=== PATIENT | female | born 1965 | race Caucasian/White ===

== ENCOUNTER 2020-06-28 10:49 | Outpatient (REF) | payer OTHER, SELFPAY ==
[2020-06-28 11:14] LABS: COVID-19 Test Negative (Negative); IDNOW Serial# 55D5AD1C
== END 2020-06-28 10:50 | disposition home or self-care (01) ==
LOC: HO.EMPCOV 10:49
PROVIDERS: Visit Provider Internal Medicine
DX: Z20.828 Contact with and (suspected) exposure to other viral communicable diseases (principal)
CPT/HCPCS: 87635; C9803

== ENCOUNTER 2020-07-02 08:30 | Outpatient (REF) | payer OTHER, SELFPAY ==
[2020-07-02 10:09] LABS: COVID-19 Test Positive (Negative)
== END 2020-07-02 08:31 | disposition home or self-care (01) ==
LOC: HO.EMPCOV 08:30
PROVIDERS: Visit Provider Internal Medicine
DX: Z20.828 Contact with and (suspected) exposure to other viral communicable diseases (principal)
CPT/HCPCS: 87635; C9803

== ENCOUNTER 2020-07-30 07:58 | Outpatient (REF) | payer OTHER, SELFPAY ==
[2020-07-30 08:16] LABS: COVID-19 Test Positive (Negative)
== END 2020-07-30 07:59 | disposition home or self-care (01) ==
LOC: HO.EMPCOV 07:58
PROVIDERS: Visit Provider Internal Medicine
DX: Z20.828 Contact with and (suspected) exposure to other viral communicable diseases (principal)
CPT/HCPCS: 87635; C9803

== ENCOUNTER 2021-01-01 07:06 | Outpatient (REF) | payer OTHER, SELFPAY ==
[2021-01-01 08:21] LABS: Glucose Urine UA NEG (NEG); Leukocyte Esterase Urine NEG (NEG); Nitrite Urine NEG (NEG); Specific Gravity - Urine >= 1.030 (1.005-1.025); Urine Blood NEG (NEG); Urine Ketones 5 MG/DL (NEG); Urine Protein NEG (NEG-TRACE)
[2021-01-01 08:23] LABS: Appearance Urine CLEAR; Color Urine YELLOW
[2021-01-01 08:24] LABS: MANUAL DIFF FLAG NO
[2021-01-01 08:36] LABS: Basophils Percent Auto 0.3 % (0-2); Eosinophils Absolute Auto 0.2 X10*3/uL (0.0-0.4); Eosinophils Percent Auto 3.1 % (0-4); Hematocrit 36.6 % (37-47); Hemoglobin 11.9 g/dl (12.0-16.0); Imm Gran Abs Auto 0.04 X10*3/uL (0.00-0.03); Imm Gran Pct Auto 0.6 % (0.0-0.4); Lymphocytes Absolute Auto 1.9 X10*3/uL (1.2-4.9); Mean Corpuscular HGB Conc 32.5 g/dl (31.0-35.0); Mean Corpuscular Hemoglobin 26.9 pg (27.0-33.0); Mean Corpuscular Volume 82.8 fL (80-98); Monocytes Absolute Auto 0.3 X10*3/uL (0.1-1.2); Monocytes Percent Auto 5.3 % (2-11); Neutrophils Absolute Auto 3.9 X10*3/uL (2.0-8.3); Neutrophils Percent Auto 60.7 % (45-73); Platelet Count 206 X10*3/uL (160-400); Red Blood Count 4.42 X10*6/uL (4.20-5.50); Red Cell Distribution Width 13.8 % (11.0-16.0); White Blood Count 6.5 X10*3/uL (4.8-10.8)
[2021-01-01 09:07] LABS: TSH reflex Free T4 0.98 uIU/mL (0.32-4.0)
[2021-01-01 09:08] LABS: Creatinine Urine 202.95 mg/dL; Microalbum/Creatinine Ratio Ur 8.8 ug/mg cr
[2021-01-01 09:14] LABS: Alanine Aminotransferase 123 U/L (0-31); Albumin Level 4.2 g/dL (3.5-5.0); Alkaline Phosphatase 102 U/L (39-117); Anion Gap 12 (12-20); Aspartate Amino Transferase 54 U/L (5-31); Bilirubin Total 0.6 mg/dL (0.0-1.0); Blood Urea Nitrogen 12 mg/dL (9-16); Calcium 9.5 mg/dL (8.4-10.2); Carbon Dioxide 27 mmol/L (22-29); Chloride 102 mmol/L (96-108); Cholesterol 196 mg/dL; Estimated Glomerular Filt Rate > 60; Glucose Fasting 208 mg/dL (60-99); HDL Cholesterol 44 mg/dL; LDL Cholesterol Calculated 107 mg/dl; Potassium 3.9 mmol/L (3.3-5.1); Sodium 137 mmol/L (135-145); Total Protein 6.7 g/dL (6.5-8.0); Triglycerides 225 mg/dL
[2021-01-01 09:39] LABS: Erythrocyte Sedimentation Rate 9 MM/HR (0-20)
== END 2021-01-01 07:07 | disposition home or self-care (01) ==
LOC: HO.LAB 07:06
PROVIDERS: PCP Internal Medicine; Visit Provider Internal Medicine
DX: E11.9 Type 2 diabetes mellitus without complications (principal); E78.00 Pure hypercholesterolemia, unspecified; R23.3 Spontaneous ecchymoses; J30.1 Allergic rhinitis due to pollen
CPT/HCPCS: 36415; 80053; 80061; 81003; 82043; 84443; 85025; 85652

== ENCOUNTER 2021-06-19 08:06 | Outpatient (REF) | payer OTHER, SELFPAY ==
--- NOTE | ~2021-06-19 | US_ITS ---
EXAMINATION: US ABDOMEN COMPLETE CLINICAL INFORMATION: Other specified abnormal findings of blood chemistry. COMPARISON: None TECHNIQUE: Real-time imaging of the abdominal viscera. FINDINGS: PANCREAS: Normal. ABDOMINAL AORTA: The proximal, mid, and distal segments are normal in caliber. INFERIOR VENA CAVA: Visualized portions are normal. LIVER: The left lobe of the liver measures 14.1 cm and the right lobe measures 19.4 cm. The liver contour is normal. Diffuse heterogeneous abnormal increased echotexture is present, consistent with diffuse liver disease likely secondary to hepatic steatosis, hepatocellular disease, or combination thereof. No focal hepatic lesion. There is no intrahepatic biliary duct dilatation seen. GALLBLADDER: Normal. The gallbladder is physiologically distended without evidence of stones, sludge, polyps, wall thickening or pericholecystic fluid. COMMON BILE DUCT: Normal in caliber measuring 0.25 cm in diameter. RIGHT KIDNEY: Normal. No hydronephrosis. No renal calculi or focal parenchymal lesions. The kidney measures 11.1 cm in maximum dimension. LEFT KIDNEY: Normal. No hydronephrosis. No renal calculi or focal parenchymal lesions. The kidney measures 11.4 cm in maximum dimension. SPLEEN: Enlarged. The spleen measures 13.9 cm in maximum dimension. FREE FLUID: None. US/US abdomen complete IMPRESSION: 1. The liver shows diffuse heterogeneous abnormal increased echotexture, consistent with diffuse liver disease likely secondary to hepatic steatosis, hepatocellular disease or combination thereof. No sonographic evidence of superimposed focal liver lesion. The left lobe measures 14.1 cm and the right lobe measures 19.4 cm. 2. Mild splenomegaly. 3. No evidence of any free fluid.
== END 2021-06-19 08:07 | disposition home or self-care (01) ==
LOC: HO.US 08:06
PROVIDERS: PCP Internal Medicine; Visit Provider Internal Medicine
DX: R79.89 Other specified abnormal findings of blood chemistry (principal)
CPT/HCPCS: 76700

== ENCOUNTER 2021-10-18 07:29 | Outpatient (REF) | payer OTHER, SELFPAY ==
[2021-10-18 08:04] LABS: Estimated Average Glucose 171 mg/dL; Hemoglobin A1c % 7.6 %
[2021-10-18 08:28] LABS: Alanine Aminotransferase 81 U/L (0-31); Albumin Level 4.2 g/dL (3.5-5.0); Alkaline Phosphatase 95 U/L (39-117); Anion Gap 10 (12-20); Aspartate Amino Transferase 45 U/L (5-31); Bilirubin Total 0.5 mg/dL (0.0-1.0); Blood Urea Nitrogen 9 mg/dL (9-16); Calcium 9.5 mg/dL (8.4-10.2); Carbon Dioxide 30 mmol/L (22-29); Chloride 102 mmol/L (96-108); Cholesterol 226 mg/dL; Estimated Glomerular Filt Rate > 60; Glucose Fasting 163 mg/dL (60-99); HDL Cholesterol 45 mg/dL; LDL Cholesterol Calculated 145 mg/dl; Potassium 4.1 mmol/L (3.3-5.1); Sodium 138 mmol/L (135-145); Total Protein 6.8 g/dL (6.5-8.0); Triglycerides 180 mg/dL
== END 2021-10-18 07:30 | disposition home or self-care (01) ==
LOC: HO.LAB 07:29
PROVIDERS: PCP Internal Medicine; Visit Provider Internal Medicine
DX: E11.9 Type 2 diabetes mellitus without complications (principal); E78.00 Pure hypercholesterolemia, unspecified
CPT/HCPCS: 36415; 80053; 80061; 83036

== ENCOUNTER 2022-07-21 14:41 | Outpatient (REF) | payer OTHER, SELFPAY ==
--- NOTE | ~2022-07-21 | XR_ITS ---
EXAMINATION: XR CHEST CLINICAL INFORMATION: Cough COMPARISON: None TECHNIQUE: 2 views of the chest were obtained. FINDINGS: The lungs are clear. No airspace consolidation, pleural effusion, or pneumothorax. The cardiomediastinal silhouette is within normal limits. No acute osseous injury. XR/XR chest 2V IMPRESSION: No acute pulmonary process.
[2022-07-21 17:45] LABS: Influenza A PCR NEGATIVE (Negative); Influenza B PCR NEGATIVE (Negative); Resp Syncy Virus RNA Qual PCR POSITIVE (Negative); SARS COV2 PCR INHOUSE NEGATIVE (Negative)
== END 2022-07-21 14:42 | disposition home or self-care (01) ==
LOC: HO.HMGCX 14:41
PROVIDERS: PCP Internal Medicine; Visit Provider Physician Assistant
DX: Z20.822 Contact with and (suspected) exposure to COVID-19 (principal); R05.9 Cough, unspecified; B34.9 Viral infection, unspecified
CPT/HCPCS: 0241U; 71046

== ENCOUNTER 2022-09-17 07:29 | Outpatient (REF) | payer OTHER, SELFPAY ==
[2022-09-17 07:47] LABS: MANUAL DIFF FLAG NO
[2022-09-17 08:10] LABS: Basophils Percent Auto 0.5 % (0-2); Eosinophils Absolute Auto 0.4 X10*3/uL (0.0-0.4); Eosinophils Percent Auto 5.5 % (0-4); Hematocrit 37.2 % (37.0-47.0); Hemoglobin 12.4 g/dl (12.0-16.0); Imm Gran Abs Auto 0.02 X10*3/uL (0.00-0.03); Imm Gran Pct Auto 0.3 % (0.0-0.4); Lymphocytes Absolute Auto 1.9 X10*3/uL (1.2-4.9); Lymphocytes Percent Auto 30.7 % (20-40); Mean Corpuscular HGB Conc 33.3 g/dl (31.0-35.0); Mean Corpuscular Hemoglobin 27.2 pg (27.0-33.0); Mean Corpuscular Volume 81.6 fL (80.0-98.0); Mean Platelet Volume 9.8 fL (9.4-12.3); Monocytes Absolute Auto 0.3 X10*3/uL (0.1-1.2); Monocytes Percent Auto 4.9 % (2-11); Neutrophils Absolute Auto 3.7 x10*3/uL (2.0-8.3); Neutrophils Percent Auto 58.1 % (45-73); Platelet Count 215 X10*3/uL (160-400); Red Blood Count 4.56 X10*6/uL (4.20-5.50); Red Cell Distribution Width 13.8 % (11.0-16.0); White Blood Count 6.3 X10*3/uL (4.8-10.8)
[2022-09-17 08:16] LABS: Estimated Average Glucose 160 mg/dL; Hemoglobin A1c % 7.2 %
[2022-09-17 08:38] LABS: Alanine Aminotransferase 84 U/L (0-31); Albumin Level 4.2 g/dL (3.5-5.0); Alkaline Phosphatase 95 U/L (39-117); Anion Gap 14 (12-20); Aspartate Amino Transferase 49 U/L (5-31); Bilirubin Total 0.6 mg/dL (0.0-1.0); Blood Urea Nitrogen 11 mg/dL (9-16); Calcium 9.4 mg/dL (8.4-10.2); Carbon Dioxide 27 mmol/L (22-29); Chloride 105 mmol/L (96-108); Cholesterol 175 mg/dL; Estimated Glomerular Filt Rate > 60; Glucose Fasting 155 mg/dL (60-99); HDL Cholesterol 42 mg/dL; LDL Cholesterol Calculated 105 mg/dl; Potassium 4.4 mmol/L (3.3-5.1); Sodium 142 mmol/L (135-145); Total Protein 6.6 g/dL (6.5-8.0); Triglycerides 142 mg/dL
[2022-09-17 08:56] LABS: TSH reflex Free T4 0.78 uIU/mL (0.32-4.0); Vitamin D 25-OH Total 43.8 ng/mL (>30)
[2022-09-17 08:58] LABS: Appearance Urine Clear; Color Urine Yellow; Glucose Urine UA Negative (Negative); Leukocyte Esterase Urine Negative (Negative); Nitrite Urine Negative (Negative); PH 5.5 (5.0-9.0); Specific Gravity - Urine <= 1.005 (1.005-1.025); Urine Blood Negative (Negative); Urine Ketones Negative (Negative); Urine Protein Negative (Neg-Trace)
[2022-09-17 09:29] LABS: Microalbum/Creatinine Ratio Ur 7.3 ug/mg cr
== END 2022-09-17 07:30 | disposition home or self-care (01) ==
LOC: HO.LAB 07:29
PROVIDERS: PCP Internal Medicine; Visit Provider Internal Medicine
DX: E11.9 Type 2 diabetes mellitus without complications (principal); E78.00 Pure hypercholesterolemia, unspecified; I10 Essential (primary) hypertension; E55.9 Vitamin D deficiency, unspecified
CPT/HCPCS: 36415; 80053; 80061; 81003; 82043; 82306; 83036; 84443; 85025

== ENCOUNTER 2022-11-12 15:12 | Outpatient (REF) | payer OTHER, SELFPAY ==
--- NOTE | ~2022-11-12 | XR_ITS ---
EXAMINATION: XR RIBS, LEFT CLINICAL INFORMATION: Left rib pain. COMPARISON: Chest x-ray 07/21/2022 TECHNIQUE: 3 views of the left ribs were obtained. Chest one view. FINDINGS: Chest: Lungs are clear. No consolidation, pneumothorax, or pleural effusion. The cardiomediastinal silhouette and pulmonary vasculature are normal. Left RIBS: Osseous structures are unremarkable. Ribs are intact. No fractures are identified. XR/XR ribs LT min 3V w CXR1V IMPRESSION: Unremarkable chest examination.
== END 2022-11-12 15:13 | disposition home or self-care (01) ==
LOC: HO.XRAY 15:12
PROVIDERS: PCP Internal Medicine; Visit Provider Internal Medicine
DX: R07.81 Pleurodynia (principal)
CPT/HCPCS: 71101

== ENCOUNTER → 2023-01-21 12:26 | Outpatient (BNVA) | payer OTHER, SELFPAY | PROVIDERS: PCP Internal Medicine; Visit Provider Internal Medicine ==

== ENCOUNTER 2023-01-22 06:59 | Outpatient (REF) | payer OTHER, SELFPAY ==
[2023-01-22 07:16] LABS: Hematocrit 37.6 % (37.0-47.0); Hemoglobin 12.8 g/dl (12.0-16.0); Mean Corpuscular Hemoglobin 27.4 pg (27.0-33.0); Mean Corpuscular Volume 80.3 fL (80.0-98.0); Mean Platelet Volume 9.4 fL (9.4-12.3); Platelet Count 192 X10*3/uL (160-400); Red Blood Count 4.68 X10*6/uL (4.20-5.50); Red Cell Distribution Width 13.4 % (11.0-16.0); White Blood Count 5.9 X10*3/uL (4.8-10.8)
[2023-01-22 07:39] LABS: Alanine Aminotransferase 86 U/L (0-31); Albumin Level 4.3 g/dL (3.5-5.0); Alkaline Phosphatase 93 U/L (39-117); Anion Gap 16 (12-20); Aspartate Amino Transferase 49 U/L (5-31); Bilirubin Total 0.7 mg/dL (0.0-1.0); Blood Urea Nitrogen 11 mg/dL (9-16); Calcium 9.6 mg/dL (8.4-10.2); Carbon Dioxide 25 mmol/L (22-29); Chloride 103 mmol/L (96-108); Estimated Glomerular Filt Rate > 60; Glucose Random 253 mg/dL (60-115); Iron 77 mcg/dL (30-160); Percent Iron Saturation 24 % (15-50); Sodium 140 mmol/L (135-145); Total Iron Binding Capacity 320 mcg/dL (228-428); Total Protein 7.1 g/dL (6.5-8.0); Unsaturated Iron Binding 243 ug/dL
[2023-01-22 07:53] LABS: Ferritin 42 ng/mL (10-250)
[2023-01-23 13:04] LABS: Hepatitis A Antibody IgG Nonreactive (Nonreactive); ~Hepatitis A Antibody IgG 0.36 S/CO (0.00-0.99)
[2023-01-23 13:15] LABS: HBS Num1 107.92 mIU/mL (0-7.99); HBsAGNum1 0.34 S/CO (0.00-0.99); Hepatitis B Core Antibody Nonreactive (Nonreactive); Hepatitis B Surface Antigen Negative (Negative); ~HepC Num1 0.07 S/CO (0.00-0.79); ~Hepatitis B Surface Antibody REACTIVE (Nonreactive); ~Hepatitis C Antibody Nonreactive (Nonreactive)
[2023-01-26 22:59] LABS: Immunoglobulin A 203 mg/dL (47-310); Immunoglobulin G 815 mg/dL (600-1640)
[2023-01-27 10:38] LABS: Hepatitis B Viral DNA Qn - cp NOT DETECTED Log IU/mL (NOT DETECTED); Hepatitis B Viral DNA Qn-IU/mL NOT DETECTED (NOT DETECTED)
[2023-01-27 16:19] LABS: Anti Nuclear Antibody Pattern Nuclear, Homogeneous; Anti Nuclear Antibody Screen POSITIVE (NEGATIVE); Anti Nuclear Antibody Titer 1:40 titer
[2023-01-28 08:49] LABS: Transglutaminase IgA <1.0 U/mL
[2023-01-28 22:44] LABS: Ceruloplasmin 34 mg/dL (18-53)
[2023-01-29 14:45] LABS: Liver Kidney Microsomal Ab <=20.0 U (<=20.0)
[2023-01-30 16:02] LABS: Smooth Muscle Antibody <20 U (<20)
== END 2023-01-22 07:00 | disposition home or self-care (01) ==
LOC: HO.LAB 06:59
PROVIDERS: PCP Internal Medicine; Visit Provider Internal Medicine
DX: R79.89 Other specified abnormal findings of blood chemistry (principal)
CPT/HCPCS: 36415; 80053; 82390; 82728; 82784; 83540; 85027; 85610; 86015; 86038; 86039; 86364; 86376; 86704; 86706; 86708; 86803; 87340; 87517

== ENCOUNTER 2023-05-07 06:44 | Outpatient (REF) | payer OTHER, SELFPAY ==
[2023-05-07 07:01] LABS: MANUAL DIFF FLAG NO
[2023-05-07 07:08] LABS: Basophils Percent Auto 0.4 % (0-2); Eosinophils Absolute Auto 0.2 X10*3/uL (0.0-0.4); Eosinophils Percent Auto 3.5 % (0-4); Imm Gran Abs Auto 0.01 X10*3/uL (0.00-0.03); Imm Gran Pct Auto 0.1 % (0.0-0.4); Lymphocytes Percent Auto 29.4 % (20-40); Mean Corpuscular HGB Conc 34.2 g/dl (31.0-35.0); Mean Corpuscular Hemoglobin 27.5 pg (27.0-33.0); Mean Corpuscular Volume 80.5 fL (80.0-98.0); Mean Platelet Volume 9.3 fL (9.4-12.3); Monocytes Absolute Auto 0.3 X10*3/uL (0.1-1.2); Monocytes Percent Auto 4.2 % (2-11); Neutrophils Absolute Auto 4.3 x10*3/uL (2.0-8.3); Neutrophils Percent Auto 62.4 % (45-73); Platelet Count 207 X10*3/uL (160-400); Red Blood Count 4.72 X10*6/uL (4.20-5.50); Red Cell Distribution Width 13.2 % (11.0-16.0); White Blood Count 6.9 X10*3/uL (4.8-10.8)
[2023-05-07 07:14] LABS: Estimated Average Glucose 151 mg/dL; Hemoglobin A1c % 6.9 % (<6.0)
[2023-05-07 07:32] LABS: Alanine Aminotransferase 91 U/L (0-31); Albumin Level 4.5 g/dL (3.5-5.0); Alkaline Phosphatase 100 U/L (39-117); Anion Gap 13 (12-20); Aspartate Amino Transferase 48 U/L (5-31); Bilirubin Total 0.6 mg/dL (0.0-1.0); Blood Urea Nitrogen 12 mg/dL (9-16); Calcium 9.9 mg/dL (8.4-10.2); Carbon Dioxide 28 mmol/L (22-29); Chloride 103 mmol/L (96-108); Cholesterol 216 mg/dL (<200); Estimated Glomerular Filt Rate > 60; Glucose Fasting 163 mg/dL (60-99); HDL Cholesterol 47 mg/dL (>40); LDL Cholesterol Calculated 139 mg/dL (<100); Potassium 3.8 mmol/L (3.3-5.1); Sodium 140 mmol/L (135-145); Total Protein 7.3 g/dL (6.5-8.0); Triglycerides 154 mg/dL (<150)
[2023-05-07 07:42] LABS: Appearance Urine Clear; Color Urine Yellow; Glucose Urine UA Negative (Negative); Leukocyte Esterase Urine Trace (Negative); Nitrite Urine Negative (Negative); PH 5.5 (5.0-9.0); UMIC TRIGGER UACC YES; Urine Blood Negative (Negative); Urine Ketones Negative (Negative); Urine Protein Negative (Neg-Trace)
[2023-05-07 07:46] LABS: TSH reflex Free T4 1.22 uIU/mL (0.32-4.0); Vitamin D 25-OH Total 98.9 ng/mL (>30)
[2023-05-07 07:47] LABS: Bacteria Urine None Seen (None Seen); Creatinine Urine 92.74 mg/dL; Hyaline Casts Urine 0-2 /LPF (0-2); Microalbum/Creatinine Ratio Ur 7.5 ug/mg cr (<30); RBC Urine 0-2 /HPF (0-2); WBC Urine 0-5 /HPF (0-5)
== END 2023-05-07 06:45 | disposition home or self-care (01) ==
LOC: HO.LAB 06:44
PROVIDERS: PCP Internal Medicine; Visit Provider Internal Medicine
DX: I10 Essential (primary) hypertension (principal); E11.9 Type 2 diabetes mellitus without complications; E55.9 Vitamin D deficiency, unspecified; E78.00 Pure hypercholesterolemia, unspecified
CPT/HCPCS: 36415; 80053; 80061; 81001; 82043; 82306; 82570; 83036; 84443; 85025

== ENCOUNTER 2023-05-11 16:12 | Outpatient (AMB) | payer OTHER, SELFPAY ==
--- NOTE | 2023-05-11 16:13 | MHC.PC.OV ---
Vital Signs 05/11/23 16:14 Height 5 ft 1 in BMI Reason not done Patient refused/unable BP 150/80 H Blood Pressure Location Lt brachial Position Sitting Pulse 68 Pulse Source Pulse Oximeter Pulse Oximetry (%) 98 Oxygen Delivery Method Room Air Intake Visit Reasons: DM, elevated LFTs, hyperlipidemia Application Development Director Required: No Accompanied by: Self / Same As Patient Allergies atorvastatin Allergy (Intermediate, Verified 05/11/23 16:56) Muscle Pain Medication List - Last Reconciled 05/11/23 by Tony Araujo MD albuterol sulfate 0.63 mg (3 mL) inhalation QID PRN albuterol sulfate 90 mcg/actuation 2 puffs PO Q4-6H PRN blood sugar diagnostic As directed blood sugar diagnostic (FreeStyle Lite Strips) As directed once daily cholecalciferol (vitamin D3) 25 mcg PO DAILY coenzyme Q10 (CoQ-10) 200 mg (2 x 100 mg) PO DAILY flash glucose scanning reader ([employer] Fernando 2 [place]) As directed flash glucose sensor (FreeStyle Fernando 2 Sensor kit) As directed ibuprofen 600 mg PO Q6H PRN loratadine 10 mg PO DAILY magnesium oxide 800 mg (1.6 x 500 mg) PO DAILY metformin ER 2,000 mg (4 x 500 mg) PO QAM rosuvastatin 5 mg PO DAILY sodium,potassium,mag sulfates 17.5-3.13-1.6 gram (Suprep Bowel Prep Kit) DILUTE; Tobacco use date assessed: 05/11/23 Dental Screening Dental Screen Date: 05/11/23 Did you have a dental visit in the last 12 months?: Yes Did you have a dental problem in the last 6 months where you did not have access to dental care?: No Was dental information given to patient?: Patient has dentist HPI DM, elevated LFTs, hyperlipidemia HPI Details Patient comes in today for her follow up visit States that she feels okay She denies any headaches or dizziness Denies any chest pains, no SOB No nausea/vomiting, no abdominal pain No change in bowel habits noted Needs a few of her Rx refilled Had her follow up labs done a few days ago - to discuss her results [facility] Medical History Elevated LFTs Pure hypercholesterolemia Petechial rash Obesity (BMI 30-39.9) Allergic rhinitis Asthma Diabetes mellitus Surgical History Hx of colonoscopy History of hysterectomy History of tubal ligation H/O section Family History Father Hypertension Hyperlipidemia Paternal Grandmother Diabetes mellitus Maternal Grandmother Diabetes mellitus Social History Housing: House Alcohol intake: never Patient Tobacco Use Status: Never used Tobacco Second Hand Smoke Exposure: No service: No Current occupational status: employed Cognitive needs: No Hearing needs: No Vision needs: No Questionnaire PHQ-9 Over the last 2 weeks, how often have you been bothered by any of the following problems? 1. Little interest or pleasure in doing things: not at all 2. Feeling down, depressed, or hopeless: not at all 3. Trouble falling or staying asleep, or sleeping too much: not at all 4. Feeling tired or having little energy: not at all 5. Poor appetite or overeating: not at all 6. Feeling bad about yourself - or that you are a failure or have let yourself or your family down: not at all 7. Trouble concentrating on things, such as reading the newspaper or watching television: not at all 8. Moving or speaking so slowly that other people could have noticed. Or the opposite - being so fidgety or restless that you have been moving around a lot more than usual: not at all 9. Thoughts that you would be better off or of hurting yourself in some way: not at all Total score: 0 Depression Screening Interpretation: Negative 93962 - PHQ-9 Billing: Yes Source: Developed by Drs. Richard Desai, Adriana Shaw, Loco Stevens and colleagues, with an educational lynnette from [employer]. Thrive Questionnaire Date Thrive assessed: 05/11/23 I am a: Patient What is your living situation today?: I have a steady place to live Within the past 12 months, did the food you bought not last and you didn't have the money to get more?: Never true Within the past 12 months, did you worry whether your food would run out before you got money to buy more?: Never true Do you have trouble paying for medicines?: No Do you have trouble getting transportation to medical appointments?: No Do you have trouble paying your heating and electricity bill?: No Do you have trouble taking care of your child, family member or friend?: No Do you have trouble with day-to-day activities such as bathing, preparing meals, shopping, managing finances, etc.?: No Are you currently unemployed and looking for a job?: No Are you interested in more education?: No Please select the resources that you would like help with: None Currently or been in a relationship where the following occur: no concerns reported AUDIT C Alcohol Use Questionnaire (AUDIT-C) 1. How often do you have a drink containing alcohol?: Never 3. How often do you have six or more drinks on one occasion?: Never Total Score: 0 Score Reviewed/Action Taken: Yes ANIA-7 AMB Questionnaire ANIA-7 Date ANIA - 7 assessed: 05/11/23 Feeling nervous, anxious, or on edge: 0 = Not at all Not being able to stop or control worryin = Not at all Worrying too much about different things: 0 = Not at all Trouble relaxin = Not at all Being so restless that it is hard to sit still: 0 = Not at all Becoming easily annoyed or irritable: 0 = Not at all Feeling afraid as if something awful might happen: 0 = Not at all Total ANIA-7 score (0-4 normal; 5-9 mild; 10-14 moderate; 15-21 severe): 0 Source: Developed by Drs. Richard Desai, Adriana Shaw, Loco Stevens and colleagues, with an educational lynnette from [employer]. Review of Systems Const Denies fatigue, Denies fever(s) and Denies headache(s) ENT Denies dysphagia, Denies dizziness, Denies otalgia, Denies headache(s), Denies neck pain, Denies odynophagia and Denies sore throat Card Denies chest pain, Denies palpitations and Denies dyspnea Resp Denies cough and Denies dyspnea GI Denies abdominal pain, Denies constipation, Denies dysphagia, Denies heartburn, Denies diarrhea, Denies nausea, Denies odynophagia and Denies vomiting Denies difficulty voiding, Denies nocturia and Denies dysuria Musc Denies neck pain Neuro Denies dizziness and Denies headache(s) Endo Denies fatigue and Denies palpitations Aller/Immun Reports seasonal rhinorrhea Physical exam (Primary Care) Vital Signs: Last Vital Signs Pulse 68 05/11/23 16:14 BP 150/80 H 05/11/23 16:14 Pulse Ox 98 05/11/23 16:14 Oxygen Delivery Method Room Air 05/11/23 16:14 Tobacco/Smoking Status: Tobacco use Status Tobacco use date assessed 05/11/23 05/11/23 16:15 Patient Tobacco Use Status Never used Tobacco 05/11/23 16:15 PHQ-9: PHQ-9 Score PHQ-9: Total score 0 05/11/23 16:17 Depression Screening Interpretation: Negative Thrive Assessment: Date of Thrive Assessment Date Thrive assessed 05/11/23 05/11/23 16:15 Currently or been in a relationship where the following occur: no concerns reported Const General: no acute distress and alert HENMT Ears: TM's normal bilaterally and EAC's normal Throat: Yes posterior oropharynx normal and Yes tonsils normal (no TP congestion noted) Neck Neck: Yes no lymphadenopathy and Yes supple Resp Auscultation: clear to auscultation bilaterally, no rales and no wheezes Cardio Rate: regular rate Rhythm: regular rhythm Heart sounds: no murmurs GI Palpation (GI): Soft to palpation and nontender Auscultation: normal bowel sounds Skin Rashes: no rashes Extrem General: Yes no clubbing, cyanosis or edema Results Reviewed Results Reviewed: Laboratory Tests 05/07/23 05/07/23 06:53 06:56 WBC 6.9 Hgb 13.0 Hct 38.0 Plt Count 207 Sodium 140 Potassium 3.8 Creatinine 0.69 Estimated GFR > 60 Fasting Glucose 163 H Hemoglobin A1c % 6.9 H Calcium 9.9 AST 48 H ALT 91 H Triglycerides 154 H Cholesterol 216 H LDL Cholesterol, Calc 139 H HDL Cholesterol 47 25-OH Vitamin D Total 98.9 TSH 1.22 Ur Specific [place] 1.020 Urine Protein Negative Urine Glucose (UA) Negative Urine Blood Negative Microalb/Creat Ratio 7.5 Assessment and Plan Assessment & Plan (1) Pure hypercholesterolemia: Code(s): E78.00 - Pure hypercholesterolemia, unspecified Plan: Results of her labs done a few days ago reviewed and discussed with patient - advised that her cholesterol levels have increased from previous Reinforced low cholesterol diet Continue Rosuvastatin 5 mg every other day - advised that her LFTs are still elevated and I would prefer she take her statin QOD for now so as to avoid aggravating her LFTs further She was not able to tolerate Atorvastatin in the past due to increased myalgia Will recheck her labs and fasting lipids in 4 months for follow up (2) Diabetes mellitus: Code(s): E11.9 - Type 2 diabetes mellitus without complications Qualifiers: Diabetes mellitus type: type 2 Diabetes mellitus fpc insulin use: without fpc use Diabetes mellitus complication status: without complication Qualified Code(s): E11.9 - Type 2 diabetes mellitus without complications Plan: HgbA1c was at 6.9% on her labs done a few days ago (was at 7.2% a few months ago) - goal is <7.0% Reinforced diabetic diet Continue Metformin ER 500 mg 4 tablets QD (3) Asthma: Code(s): J45.909 - Unspecified asthma, uncomplicated Qualifiers: Asthma severity: mild Asthma persistence: intermittent Asthma complication type: uncomplicated Qualified Code(s): J45.20 - Mild intermittent asthma, uncomplicated Plan: Stable - states that her asthma only tends to flare up mostly in the winter time and she has been doing well so far Continue Albuterol HFA 2 puffs 4 times a day as needed (4) Elevated LFTs: Code(s): R79.89 - Other specified abnormal findings of blood chemistry Plan: LFTs are still elevated on her recent labs - is most likely due to a combination of her weight, cholesterol and Rx Patient is asymptomatic with no complaints of nausea/vomiting or abdominal pain Abdominal US done back in June 2021 revealed findings consistent with hepatosteatosis with no other abnormalities noted Hepatitis profile done a few months ago also all came back negative Will continue to monitor her LFTs regularly (5) Allergic rhinitis: Code(s): J30.9 - Allergic rhinitis, unspecified Qualifiers: Allergic rhinitis trigger: pollen Allergic rhinitis seasonality: seasonal Qualified Code(s): J30.1 - Allergic rhinitis due to pollen Plan: Takes OTC Tamara 180 mg QD PRN with some relief of her symptoms (6) Petechial rash: Code(s): R23.3 - Spontaneous ecchymoses Plan: CBC and ESR done a few months ago showed no significant abnormalities - platelet count was normal Patient reports no bleeding tendencies Follow up with dermatology (Dr. Pepper) as scheduled (7) Obesity (BMI 30-39.9): Code(s): E66.9 - Obesity, unspecified Plan: Reinforced diet/exercise as tolerated/lose weight Follow up with Weight Management as scheduled Plan Follow up in 4 months Orders: Orders Complete Blood Count Auto Diff 4 Months I10 - Essential (primary) hypertension UA CC w/rflx Micro + Cult 4 Months R30.0 - Dysuria Vitamin D 25-OH Total 4 Months E55.9 - Vitamin D deficiency, unspecified TSH reflex Free T4 4 Months E78.00 - Pure hypercholesterolemia, unspecified Comprehensive [place]. Panel Fast 4 Months E78.00 - Pure hypercholesterolemia, unspecified Lipid Panel 4 Months E78.00 - Pure hypercholesterolemia, unspecified Medications: Refilled albuterol sulfate 90 mcg/actuation 2 puffs PO Q4-6H PRN 8.5 ea 5RF for wheezing rosuvastatin 5 mg PO DAILY 90 tabs 1RF metformin ER 2,000 mg (4 x 500 mg) PO QAM 360 tabs 1RF E11.9 - Type 2 diabetes mellitus without complications Coding Level of Care Code Est Pt Level 4 (16560) Diagnoses Pure hypercholesterolemia E78.00 Type 2 diabetes mellitus without complication, without long-term current use of insulin E11.9 Diabetes mellitus type: type 2 Diabetes mellitus watermaster insulin use: without fpc use Diabetes mellitus complication status: without complication Mild intermittent asthma without complication J45.20 Asthma severity: mild Asthma persistence: intermittent Asthma complication type: uncomplicated Elevated LFTs R79.89 Seasonal allergic rhinitis due to pollen J30.1 Allergic rhinitis trigger: pollen Allergic rhinitis seasonality: seasonal Petechial rash R23.3 Obesity (BMI 30-39.9) E66.9
[2023-05-11 16:14] VITALS: BP 150/80; PULSE 68; O2SAT 98
== END 2023-05-11 16:58 | disposition home or self-care (01) ==
PROVIDERS: PCP Internal Medicine; Visit Provider Internal Medicine
DX: E11.9 Type 2 diabetes mellitus without complications (principal); R74.01 Elevation of levels of liver transaminase levels; E78.00 Pure hypercholesterolemia, unspecified; J45.20 Mild intermittent asthma, uncomplicated
CPT/HCPCS: 99214

== ENCOUNTER 2023-09-21 10:59 | Outpatient (AMB) | payer OTHER, SELFPAY ==
[2023-09-21 11:43] VITALS: BP 130/82; PULSE 84; TEMP 36.9; O2SAT 98
--- NOTE | 2023-09-21 11:43 | MHC.OFFWIV ---
Intake Vital Signs 09/21/23 11:43 Height 5 ft 1 in BMI Reason not done Patient refused/unable BP 130/82 Blood Pressure Location Lt brachial Position Sitting Pulse 84 Pulse Source Pulse Oximeter Temp 98.4 F Temp Source Oral Pulse Oximetry (%) 98 Oxygen Delivery Method Room Air Intake Visit Reasons: asthma Intake Note: Pt presents to the office today for c/o of asthma. Pt states she has been wheezing and having chest pressure for 2 weeks. Patient Tobacco Use Status: Never used Tobacco Allergies atorvastatin Allergy (Intermediate, Verified 09/21/23 12:09) Muscle Pain Medication List - Last Reconciled 09/21/23 by Gloria Valle, [facility]- albuterol sulfate 0.63 mg (3 mL) inhalation QID PRN albuterol sulfate 90 mcg/actuation 2 puffs PO Q4-6H PRN blood sugar diagnostic As directed blood sugar diagnostic (FreeStyle Lite Strips) As directed once daily cholecalciferol (vitamin D3) 25 mcg PO DAILY coenzyme Q10 (CoQ-10) 200 mg (2 x 100 mg) PO DAILY flash glucose scanning reader (FreeStyle Fernando 2 [place]) As directed flash glucose sensor (FreeStyle Fernando 2 Sensor kit) As directed ibuprofen 600 mg PO Q6H PRN loratadine 10 mg PO DAILY magnesium oxide 800 mg (1.6 x 500 mg) PO DAILY metformin ER 2,000 mg (4 x 500 mg) PO QAM rosuvastatin 5 mg PO DAILY sodium,potassium,mag sulfates 17.5-3.13-1.6 gram (Suprep Bowel Prep Kit) DILUTE; HPI HPI Comments History of Present Illness Details Here today with complaints of asthma exacerbation. Reports that over the last 3 weeks she has been sick with upper respiratory symptoms. Although most of her symptoms have cleared she continues to have a cough and wheezing. Her symptoms are worse at night. She is using her rescue inhaler with very limited relief and admits to using it more than usual. She is up-to-date on her vaccines. She has not on a maintenance inhaler [facility] Medical History Elevated LFTs Pure hypercholesterolemia Petechial rash Obesity (BMI 30-39.9) Allergic rhinitis Asthma Diabetes mellitus Surgical History Hx of colonoscopy History of hysterectomy History of tubal ligation H/O section Family History Father Hypertension Hyperlipidemia Paternal Grandmother Diabetes mellitus Maternal Grandmother Diabetes mellitus Social History Housing: House Alcohol intake: never Patient Tobacco Use Status: Never used Tobacco Second Hand Smoke Exposure: No service: No Current occupational status: employed Cognitive needs: No Hearing needs: No Vision needs: No Review of Systems Const All systems reviewed & are unremarkable except as noted in HPI and below Physical Exam Vital Signs: Last Vital Signs Temp 98.4 F 09/21/23 11:43 Pulse 84 09/21/23 11:43 BP 130/82 09/21/23 11:43 Pulse Ox 98 09/21/23 11:43 Oxygen Delivery Method Room Air 09/21/23 11:43 Const Other: Awake alert NAD Sclera and conjunctiva clear bilat TM intact and clear bilat MMM, pharynx WNL RRR LS with coarse rhonchi throughout Assessment & Plan Assessment & Plan (1) Asthma exacerbation: Code(s): J45.901 - Unspecified asthma with (acute) exacerbation Qualifiers: Asthma persistence: intermittent Asthma severity: mild Qualified Code(s): J45.21 - Mild intermittent asthma with (acute) exacerbation Plan: . Medications: New benzonatate 100 mg PO TID PRN 30 caps 1RF cough 10 days prednisone 50 mg PO DAILY 5 tabs 0RF 5 days azithromycin For 250 mg dose pack: take 500 mg today (day 1), then 250 mg for 4 days (days 2-5) PO 6 tabs 0RF 5 days Refilled albuterol sulfate 0.63 mg (3 mL) inhalation QID PRN 90 mL 0RF shortness of breath or wheezing Coding Level of Care Code Est Pt Level 3 (86765) Diagnoses Mild intermittent asthma with exacerbation J45.21 Asthma persistence: intermittent Asthma severity: mild
== END 2023-09-21 12:15 | disposition home or self-care (01) ==
PROVIDERS: PCP Internal Medicine; Visit Provider Nurse Practitioner Family
DX: J45.21 Mild intermittent asthma with (acute) exacerbation (principal)
CPT/HCPCS: 99213

== ENCOUNTER 2023-10-10 10:10 | Outpatient (AMB) | payer OTHER, SELFPAY ==
[2023-10-10 10:18] VITALS: BP 142/84; PULSE 82; TEMP 36.9; O2SAT 98; BMI 34.0
--- NOTE | 2023-10-10 10:18 | AM.OFFWIN_ITS ---
Intake Vital Signs 10/10/23 10:18 Height 5 ft 1 in Weight 180 lb BMI 34.0 BP 142/84 H Blood Pressure Location Lt brachial Position Sitting Pulse 82 Pulse Source Pulse Oximeter Temp 98.5 F Temp Source Oral Pulse Oximetry (%) 98 Oxygen Delivery Method Room Air Intake Visit Reasons: EP Sinus pressure, ear pain Intake Note: Pt is here today for sinus pain and ear pressure. Pt states symptoms started about a wk ago Patient Tobacco Use Status: Never used Tobacco Allergies atorvastatin Allergy (Intermediate, Verified 10/10/23 10:19) Muscle Pain HPI HPI Comments History of Present Illness Details This is a 57-year-old female with a past medical history of allergic rhinitis, asthma and [id number] diabetes presenting for evaluation of sinus pressure and a cough that she has had for the past 1 week. Patient reports having intermittent facial pain but denies any dental pain. Patient also denies having any fevers, chills or recent sick contacts. [facility] Medical History Elevated LFTs Pure hypercholesterolemia Petechial rash Obesity (BMI 30-39.9) Allergic rhinitis Asthma Diabetes mellitus Surgical History Hx of colonoscopy History of hysterectomy History of tubal ligation H/O section Family History Father Hypertension Hyperlipidemia Paternal Grandmother Diabetes mellitus Maternal Grandmother Diabetes mellitus Social History Housing: House Alcohol intake: never Patient Tobacco Use Status: Never used Tobacco Second Hand Smoke Exposure: No service: No Current occupational status: employed Cognitive needs: No Hearing needs: No Vision needs: No Review of Systems Const All systems reviewed & are unremarkable except as noted in HPI and below Reports as per HPI and Reports no additional complaints Eyes Reports no additional complaints ENT Reports no additional complaints, Denies dental pain, Reports facial pain, Reports sinus pressure and Denies sore throat Card Reports no additional complaints and Denies dyspnea Resp Reports cough, Denies hemoptysis, Denies dyspnea and Denies wheezing Aller/Immun Denies wheezing Physical Exam Vital Signs: Last Vital Signs Temp 98.5 F 10/10/23 10:18 Pulse 82 10/10/23 10:18 BP 142/84 H 10/10/23 10:18 Pulse Ox 98 10/10/23 10:18 Oxygen Delivery Method Room Air 10/10/23 10:18 BMI result Body Mass Index 34.0 Patient is afebrile. Const General: cooperative, healthy appearing, comfortable, no acute distress, well developed, alert and awake Nutritional Appearance: overweight Orientation/consciousness: patient oriented x3 Limitations: no limitations HEENT Head: Yes normal to inspection and Yes normocephalic Ears: hearing grossly normal bilaterally, external ears normal, TM's normal bilaterally and EAC's normal General nose exam: Normal external nose present and Normal nares present Face and sinus: Yes normal facial exam and Yes sinuses nontender Mouth: Normal oral and palatal mucosa present Teeth and gingiva: dentition normal Throat: Yes posterior oropharynx normal and No postnasal drainage Eyes General: appearance normal, both eyes and all related structures Eyelids: Yes eyelids normal Conjunctivae: conjunctivae normal Sclerae: sclerae normal Corneas: corneas normal Pupils: Equal, round and reactive pupils present EOM: EOMs intact bilaterally Neck Lymphatic: no lymphadenopathy noted Resp Effort & Inspection: normal respiratory effort, able to speak in complete sentences, no audible wheezes, no cough, no respiratory distress and not tachypneic Auscultation: clear to auscultation bilaterally Cardio Rate: regular rate Rhythm: regular rhythm Neuro General: patient oriented x3 Cranial nerves: Yes Equal, round and reactive pupils present Psych Appearance: grossly normal Mental Status: mental status grossly normal Insight: Good insight present (Psych) Judgement: Good judgement present (Psych) Assessment & Plan Assessment & Plan (1) Acute sinusitis: Comment: There is no clinical evidence of a bacterial sinusitis. Patient will be instructed to use fluticasone nasal spray as well as Mucinex [id number] and increase clear fluids daily. Code(s): J01.90 - Acute sinusitis, unspecified Qualifiers: Sinusitis location: frontal Recurrence: not specified as recurrent Qualified Code(s): J01.10 - Acute frontal sinusitis, unspecified Plan: Fluticasone daily times 10-14 days and Mucinex OTC. Patient to follow up with primary care provider if symptoms persist more than 10-14 days. Medications: New fluticasone propionate 50 mcg/actuation administer into each nostril 1 spray intranasal DAILY 16 grams 1RF Coding Level of Care Code Est Pt Level 3 (04781) Diagnoses Acute frontal sinusitis, recurrence not specified J01.10 Sinusitis location: frontal Recurrence: not specified as recurrent Time Spent (min) 20
== END 2023-10-10 11:59 | disposition home or self-care (01) ==
PROVIDERS: PCP Internal Medicine; Visit Provider Physician Assistant
DX: J01.10 Acute frontal sinusitis, unspecified (principal)
CPT/HCPCS: 99051; 99213

== ENCOUNTER 2023-10-17 09:08 | Outpatient (AMB) | payer OTHER, SELFPAY ==
[2023-10-17 09:21] VITALS: BP 128/82; PULSE 98; TEMP 36.8; O2SAT 98; BMI 34.0
--- NOTE | 2023-10-17 09:21 | MHC.OFFWIV ---
Intake Vital Signs 10/17/23 09:21 Height 5 ft 1 in Weight 180 lb BMI 34.0 BP 128/82 Blood Pressure Location Lt brachial Position Sitting Pulse 98 Pulse Source Pulse Oximeter Temp 98.3 F Temp Source Oral Pulse Oximetry (%) 98 Oxygen Delivery Method Room Air Intake Visit Reasons: EP sinus infection pressure headache Intake Note: Patient is here with sinus infection and pressure headache, cough for over a month. Patient Tobacco Use Status: Never used Tobacco Allergies atorvastatin Allergy (Intermediate, Verified 10/17/23 09:51) Muscle Pain Medication List - Last Reconciled 10/17/23 by Samara Camacho CNP albuterol sulfate 90 mcg/actuation 2 puffs PO Q4-6H PRN albuterol sulfate 0.63 mg (3 mL) inhalation QID PRN blood sugar diagnostic As directed blood sugar diagnostic (FreeStyle Lite Strips) As directed once daily cholecalciferol (vitamin D3) 25 mcg PO DAILY flash glucose scanning reader (FreeStyle Fernando 2 [place]) As directed flash glucose sensor (FreeStyle Fernando 2 Sensor kit) As directed fluticasone propionate 50 mcg/actuation 1 spray intranasal DAILY ibuprofen 600 mg PO Q6H PRN loratadine 10 mg PO DAILY magnesium oxide 800 mg (1.6 x 500 mg) PO DAILY metformin ER 2,000 mg (4 x 500 mg) PO QAM rosuvastatin 5 mg PO DAILY sodium,potassium,mag sulfates 17.5-3.13-1.6 gram (Suprep Bowel Prep Kit) DILUTE; Do you need a note to return to daycare/school/sports/work: No HPI HPI Comments History of Present Illness Details This is a 57-year-old female with a past medical history of allergic rhinitis, asthma and [id number] diabetes presenting for evaluation of sinus pressure, headache and a cough x 1 month. Patient reports having sinus pressure, pain, tender to touch, headache that wakes her up at 4 am, yellowish green nasal discharge, and course dry barking cough. She denies recent dental issues, fever, chills, CP, SOB, dizziness, abdominal pain, nausea, vomiting, changes in bowels or bladder. [facility] Medical History Elevated LFTs Pure hypercholesterolemia Petechial rash Obesity (BMI 30-39.9) Allergic rhinitis Asthma Diabetes mellitus Surgical History Hx of colonoscopy History of hysterectomy History of tubal ligation H/O section Family History Father Hypertension Hyperlipidemia Paternal Grandmother Diabetes mellitus Maternal Grandmother Diabetes mellitus Social History Housing: House Alcohol intake: never Patient Tobacco Use Status: Never used Tobacco Second Hand Smoke Exposure: No service: No Current occupational status: employed Cognitive needs: No Hearing needs: No Vision needs: No Review of Systems Const All systems reviewed & are unremarkable except as noted in HPI and below Physical Exam Vital Signs: Last Vital Signs Temp 98.3 F 10/17/23 09:21 Pulse 98 10/17/23 09:21 BP 128/82 10/17/23 09:21 Pulse Ox 98 10/17/23 09:21 Oxygen Delivery Method Room Air 10/17/23 09:21 BMI result Body Mass Index 34.0 Const General: ill appearing acutely and well groomed Nutritional Appearance: overweight Orientation/consciousness: patient oriented x3 Limitations: no limitations HEENT Head: Yes normal to inspection, Yes normocephalic and Yes atraumatic Ears: hearing grossly normal bilaterally and TM's normal bilaterally General nose exam: Abnormal mucous membranes and turbinates present boggy bilateral and erythematous bilateral and Nasal discharge present purulent bilateral Face and sinus: Yes erythema (bilateral bilateral maxillary ) and Yes sinus tenderness Mouth: moist mucous membranes Teeth and gingiva: dentition normal Throat: Yes posterior oropharynx normal, Yes tonsils normal and Yes uvula midline Eyes Other: ill appearing Periorbital: periorbital findings normal Eyelids: Yes eyelids normal Conjunctivae: conjunctivae normal Sclerae: sclerae normal Neck Neck: Yes no meningeal signs Lymphatic: lymphadenopathy bilateral submandibular Chest Chest palpation & inspection: normal inspection of the chest Resp Effort & Inspection: normal respiratory effort, no audible wheezes, Actively coughing Quality: dry, no respiratory distress and not tachypneic Auscultation: clear to auscultation bilaterally, no crackles, no rales, no rhonchi and no wheezes Cardio Palpation: normal PMI Rate: regular rate Rhythm: regular rhythm Heart sounds: S1 normal heart sound present, S2 normal heart sound present and no murmurs Peripheral pulses: Peripheral pulses 2+ throughout GI Palpation (GI): Soft to palpation and nontender Auscultation: normal bowel sounds Skin General skin exam: no rashes or lesions noted, elasticity normal and turgor normal Neuro General: patient oriented x3, gait normal, moves all extremities and no meningeal signs Extrem General: Yes normal to inspection, Yes full ROM, Yes capillary refill normal and Yes no clubbing, cyanosis or edema Psych Appearance: well kempt Mental Status: mental status grossly normal Speech and movement: Normal speech and movement present Affect: normal affect Attitude: cooperative Assessment & Plan Assessment & Plan (1) Acute bacterial sinusitis: Code(s): J01.90 - Acute sinusitis, unspecified; B96.89 - Other specified bacterial agents as the cause of diseases classified elsewhere Plan: 57-year-old female seen today in office for complaint of sinus pressure, pain, sinus tenderness, headache, yellowish green nasal discharge, and course dry barking cough. Physical examination with bilateral erythematous and boggy turbinates. Will treat with 7 day course of Augmentin, encouraged to take with food or milk to reduce GI upset. Encouraged to drink plenty of fluid, and get plenty of rest. (2) Chronic cough: Code(s): R05.3 - Chronic cough Plan: Dry baring cough x 1 month secondary to post nasal drip. RX for benzonatate, 100 mg po bid prn x 7 days. Medications: New amoxicillin-pot clavulanate 875-125 mg 1 tab PO BID 7 days 14 tabs 0RF B96.89 - Other specified bacterial agents as the cause of diseases classified elsewhere, J01.90 - Acute sinusitis, unspecified benzonatate 100 mg PO BID 7 days PRN 14 caps 0RF cough R05.3 - Chronic cough Coding Level of Care Code Est Pt Level 3 (33150) Diagnoses Acute bacterial sinusitis J01.90; B96.89 Chronic cough R05.3
== END 2023-10-17 10:31 | disposition home or self-care (01) ==
PROVIDERS: PCP Internal Medicine; Visit Provider Nurse Practitioner Acute Care
DX: J01.90 Acute sinusitis, unspecified (principal); B96.89 Other specified bacterial agents as the cause of diseases classified elsewhere; R05.3 Chronic cough
CPT/HCPCS: 99051; 99213

== ENCOUNTER 2023-12-23 06:56 | Outpatient (REF) | payer OTHER, SELFPAY ==
[2023-12-23 07:15] LABS: MANUAL DIFF FLAG NO
[2023-12-23 07:58] LABS: Basophils Percent Auto 0.3 % (0-2); Eosinophils Absolute Auto 0.2 X10*3/uL (0.0-0.4); Eosinophils Percent Auto 2.5 % (0-4); Hematocrit 37.6 % (37.0-47.0); Hemoglobin 12.7 g/dl (12.0-16.0); Imm Gran Abs Auto 0.02 X10*3/uL (0.00-0.03); Imm Gran Pct Auto 0.3 % (0.0-0.4); Lymphocytes Absolute Auto 2.1 X10*3/uL (1.2-4.9); Lymphocytes Percent Auto 32.8 % (20-40); Mean Corpuscular HGB Conc 33.8 g/dl (31.0-35.0); Mean Corpuscular Hemoglobin 27.5 pg (27.0-33.0); Mean Corpuscular Volume 81.4 fL (80.0-98.0); Mean Platelet Volume 9.8 fL (9.4-12.3); Monocytes Absolute Auto 0.3 X10*3/uL (0.1-1.2); Neutrophils Absolute Auto 3.8 x10*3/uL (2.0-8.3); Neutrophils Percent Auto 59.1 % (45-73); Platelet Count 221 X10*3/uL (160-400); Red Blood Count 4.62 X10*6/uL (4.20-5.50); Red Cell Distribution Width 13.5 % (11.0-16.0); White Blood Count 6.4 X10*3/uL (4.8-10.8)
[2023-12-23 08:12] LABS: Appearance Urine Clear; Color Urine Yellow; Glucose Urine UA Negative (Negative); Leukocyte Esterase Urine Trace (Negative); Nitrite Urine Negative (Negative); PH 5.5 (5.0-9.0); Specific Gravity - Urine 1.015 (1.005-1.025); UMIC TRIGGER UACC YES; Urine Blood Negative (Negative); Urine Ketones Negative (Negative); Urine Protein Negative (Neg-Trace)
[2023-12-23 08:17] LABS: Bacteria Urine None Seen (None Seen); Hyaline Casts Urine 0-2 /LPF (0-2); RBC Urine 0-2 /HPF (0-2); Squamous Epithelial Cell Urine 0-2 /HPF (0-2); WBC Urine 0-5 /HPF (0-5)
[2023-12-23 08:46] LABS: Alanine Aminotransferase 69 U/L (0-31); Albumin Level 4.4 g/dL (3.5-5.0); Alkaline Phosphatase 96 U/L (39-117); Anion Gap 15 (12-20); Aspartate Amino Transferase 42 U/L (5-31); Bilirubin Total 0.6 mg/dL (0.0-1.0); Blood Urea Nitrogen 12 mg/dL (9-16); Calcium 9.5 mg/dL (8.4-10.2); Carbon Dioxide 27 mmol/L (22-29); Chloride 103 mmol/L (96-108); Cholesterol 212 mg/dL (<200); Estimated Glomerular Filt Rate > 60; Glucose Fasting 170 mg/dL (60-99); HDL Cholesterol 49 mg/dL (>40); LDL Cholesterol Calculated 136 mg/dL (<100); Potassium 3.9 mmol/L (3.3-5.1); Sodium 141 mmol/L (135-145); Total Protein 7.2 g/dL (6.5-8.0); Triglycerides 137 mg/dL (<150)
[2023-12-23 09:05] LABS: TSH reflex Free T4 0.73 uIU/mL (0.32-4.0); Vitamin D 25-OH Total 45.9 ng/mL (>30)
== END 2023-12-23 06:57 | disposition home or self-care (01) ==
LOC: HO.LAB 06:56
PROVIDERS: PCP Internal Medicine; Visit Provider Internal Medicine
DX: E78.00 Pure hypercholesterolemia, unspecified (principal); I10 Essential (primary) hypertension; E55.9 Vitamin D deficiency, unspecified
CPT/HCPCS: 36415; 80053; 80061; 81001; 81003; 82306; 84443; 85025

== ENCOUNTER 2023-12-28 16:24 | Outpatient (AMB) | payer OTHER, SELFPAY ==
--- NOTE | 2023-12-28 16:26 | A.OFFPC_ITS ---
Vital Signs 12/28/23 16:28 Height 5 ft 1 in BMI Reason not done Patient refused/unable BP 130/70 Blood Pressure Location Lt brachial Position Sitting Pulse 95 Pulse Source Pulse Oximeter Pulse Oximetry (%) 95 Oxygen Delivery Method Room Air Intake Visit Reasons: hyperlipidemia, elevated LFTs Intake Note: Patient is here to follow up on HLD, Elevated LFTs, DM. Veneer Drier Required: No Metal Cutter: Not Required per policy Accompanied by: Self / Same As Patient Allergies atorvastatin Allergy (Intermediate, Verified 12/28/23 16:57) Muscle Pain Medication List - Last Reconciled 12/28/23 by Tony Araujo MD albuterol sulfate 90 mcg/actuation 2 puffs PO Q4-6H PRN albuterol sulfate 0.63 mg (3 mL) inhalation QID PRN blood sugar diagnostic As directed blood sugar diagnostic (FreeStyle Lite Strips) As directed once daily cholecalciferol (vitamin D3) 25 mcg PO DAILY flash glucose scanning reader (FreeStyle Fernando 2 [place]) As directed flash glucose sensor (FreeStyle Fernando 2 Sensor kit) As directed fluticasone propionate 50 mcg/actuation 1 spray intranasal DAILY ibuprofen 600 mg PO Q6H PRN loratadine 10 mg PO DAILY magnesium oxide 800 mg (1.6 x 500 mg) PO DAILY metformin ER 2,000 mg (4 x 500 mg) PO QAM rosuvastatin 5 mg PO DAILY sodium,potassium,mag sulfates 17.5-3.13-1.6 gram (Suprep Bowel Prep Kit) DILUTE; Tobacco use date assessed: 12/28/23 Dental Screening Dental Screen Date: 12/28/23 Did you have a dental visit in the last 12 months?: Yes Did you have a dental problem in the last 6 months where you did not have access to dental care?: No Was dental information given to patient?: Patient has dentist HPI hyperlipidemia, elevated LFTs HPI Details Patient comes in today for her follow up visit States that she feels okay She denies any headaches or dizziness Denies any chest pains, no SOB No nausea/vomiting, no abdominal pain No change in bowel habits noted She needs a few of her Rx refilled Had her follow up labs done a few days ago - to discuss her results [facility] Medical History Elevated LFTs Pure hypercholesterolemia Petechial rash Obesity (BMI 30-39.9) Allergic rhinitis Asthma Diabetes mellitus Surgical History Hx of colonoscopy History of hysterectomy History of tubal ligation H/O section Family History Father Hypertension Hyperlipidemia Paternal Grandmother Diabetes mellitus Maternal Grandmother Diabetes mellitus Social History Housing: House Alcohol intake: never Patient Tobacco Use Status: Never used Tobacco e-Cigarette/Vaping Use: Never Used Second Hand Smoke Exposure: No service: No Current occupational status: employed Cognitive needs: No Hearing needs: No Vision needs: No Questionnaire PHQ-9 Over the last 2 weeks, how often have you been bothered by any of the following problems? 1. Little interest or pleasure in doing things: not at all 2. Feeling down, depressed, or hopeless: not at all 3. Trouble falling or staying asleep, or sleeping too much: not at all 4. Feeling tired or having little energy: not at all 5. Poor appetite or overeating: not at all 6. Feeling bad about yourself - or that you are a failure or have let yourself or your family down: not at all 7. Trouble concentrating on things, such as reading the newspaper or watching television: not at all 8. Moving or speaking so slowly that other people could have noticed. Or the opposite - being so fidgety or restless that you have been moving around a lot more than usual: not at all 9. Thoughts that you would be better off or of hurting yourself in some way: not at all Total score: 0 Depression Screening Interpretation: Negative Depression Screening Done: Yes 17461 - PHQ-9 Billing: Yes Source: Developed by Drs. Richard Desai, Adriana Shaw, Loco Stevens and colleagues, with an educational lynnette from [employer] Thrive Questionnaire Date Thrive assessed: 12/28/23 I am a: Patient What is your living situation today?: I have a steady place to live Within the past 12 months, did the food you bought not last and you didn't have the money to get more?: Never true Within the past 12 months, did you worry whether your food would run out before you got money to buy more?: Never true Do you have trouble paying for medicines?: No Do you have trouble getting transportation to medical appointments?: No Do you have trouble paying your heating and electricity bill?: No Do you have trouble taking care of your child, family member or friend?: No Do you have trouble with day-to-day activities such as bathing, preparing meals, shopping, managing finances, etc.?: No Are you currently unemployed and looking for a job?: No Are you interested in more education?: No Currently or been in a relationship where the following occur: no concerns reported THRIVE Score: 0 AUDIT C Alcohol Use Questionnaire (AUDIT-C) 1. How often do you have a drink containing alcohol?: Never 3. How often do you have six or more drinks on one occasion?: Never Total Score: 0 Score Reviewed/Action Taken: Yes ANIA-7 AMB Questionnaire ANIA-7 Date ANIA - 7 assessed: 12/28/23 Feeling nervous, anxious, or on edge: 0 = Not at all Not being able to stop or control worryin = Not at all Worrying too much about different things: 0 = Not at all Trouble relaxin = Not at all Being so restless that it is hard to sit still: 0 = Not at all Becoming easily annoyed or irritable: 0 = Not at all Feeling afraid as if something awful might happen: 0 = Not at all Total ANIA-7 score (0-4 normal; 5-9 mild; 10-14 moderate; 15-21 severe): 0 Source: Developed by Drs. Richard Desai, Adriana Shaw, Loco Stevens and colleagues, with an educational lynnette from [employer] Physical exam (Primary Care) Vital Signs: Last Vital Signs Pulse 95 12/28/23 16:28 BP 130/70 12/28/23 16:28 Pulse Ox 95 12/28/23 16:28 Oxygen Delivery Method Room Air 12/28/23 16:28 Tobacco/Smoking Status: Tobacco use Status Tobacco use date assessed 12/28/23 12/28/23 16:28 Patient Tobacco Use Status Never used Tobacco 12/28/23 16:28 e-Cigarette/Vaping Use Never Used 12/28/23 16:28 PHQ-9: PHQ-9 Score PHQ-9: Total score 0 01/06/24 17:48 Depression Screening Interpretation: Negative Thrive Assessment: Date of Thrive Assessment Date Thrive assessed 12/28/23 12/28/23 16:28 Currently or been in a relationship where the following occur: no concerns reported Results AMB Hemoglobin A1c AMB Hemoglobin A1c 7.6 % Last Edit by NANCY Gambino on 12/28/23 16:40 Results Reviewed Results Reviewed: Laboratory Last Values Hgb A1c (Clinic) 7.6 % (4.0-6.0) H 12/28/23 16:28 Laboratory Tests 12/23/23 12/23/23 12/28/23 07:08 07:14 16:28 WBC 6.4 Hgb 12.7 Hct 37.6 Plt Count 221 Sodium 141 Potassium 3.9 Creatinine 0.72 Estimated GFR > 60 Fasting Glucose 170 H Hgb A1c (Clinic) 7.6 H Calcium 9.5 AST 42 H ALT 69 H Triglycerides 137 Cholesterol 212 H LDL Cholesterol, Calc 136 H HDL Cholesterol 49 25-OH Vitamin D Total 45.9 TSH 0.73 Ur Specific Pillow 1.015 Urine Protein Negative Urine Glucose (UA) Negative Urine Blood Negative Urine Nitrite Negative Ur Leukocyte Esterase Trace H Assessment and Plan Assessment & Plan (1) Pure hypercholesterolemia: Code(s): E78.00 - Pure hypercholesterolemia, unspecified Plan: Results of her labs done a few days ago reviewed and discussed with patient - advised that her cholesterol levels are still elevated and are mostly unchanged from previous Reinforced low cholesterol diet Continue Rosuvastatin 5 mg every other day - advised that her LFTs are still elevated and I would prefer she take her statin QOD for now so as to avoid ag gravating her LFTs further She was not able to tolerate Atorvastatin in the past due to increased myalgia Will recheck her labs and fasting lipids in 4 months for follow up (2) Diabetes mellitus: Code(s): E11.9 - Type 2 diabetes mellitus without complications Qualifiers: Diabetes mellitus complication status: without complication Diabetes mellitus terminal operations manager insulin use: without [facility] use Diabetes mellitus type: type 2 Qualified Code(s): E11.9 - Type 2 diabetes mellitus without complications Plan: Her HgbA1c went up slightly to 7.6% on her labs done a few days ago (was at 6.9% a few months ago) - goal is <7.0% Reinforced diabetic diet Continue Metformin ER 500 mg 4 tablets QD for now but advised that we may need to start her on some additional medications for her diabetes if she cannot get her HgbA1c and diabetes back under control (3) Asthma: Code(s): J45.909 - Unspecified asthma, uncomplicated Qualifiers: Asthma complication type: uncomplicated Asthma persistence: intermittent Asthma severity: mild Qualified Code(s): J45.20 - Mild intermittent asthma, uncomplicated Plan: Stable - states that her asthma only tends to flare up mostly in the winter time and she has been doing well so far Continue Albuterol HFA 2 puffs 4 times a day as needed (4) Elevated LFTs: Code(s): R79.89 - Other specified abnormal findings of blood chemistry Plan: LFTs are still elevated on her recent labs although they have declined slightly from previous - is most likely due to a combination of her weight, cholesterol and Rx Patient is asymptomatic with no complaints of nausea/vomiting or abdominal pain Abdominal US done back in June 2021 revealed findings consistent with hepatosteatosis with no other abnormalities noted Hepatitis profile done a few months ago also all came back negative Will continue to monitor her LFTs regularly (5) Allergic rhinitis: Code(s): J30.9 - Allergic rhinitis, unspecified Qualifiers: Allergic rhinitis seasonality: seasonal Allergic rhinitis trigger: pollen Qualified Code(s): J30.1 - Allergic rhinitis due to pollen Plan: Takes OTC Tamara 180 mg QD PRN with some relief of her symptoms (6) Obesity (BMI 30-39.9): Code(s): E66.9 - Obesity, unspecified Plan: Reinforced diet/exercise as tolerated/lose weight Follow up with Weight Management as scheduled Plan Follow up in 4 months Orders: Orders AMB Hemoglobin A1c 12/28/23 E11.9 - Type 2 diabetes mellitus without complic ations Medications: Changed From rosuvastatin 5 mg PO DAILY 90 tabs 1RF To rosuvastatin 5 mg (1/2 x 10 mg) PO DAILY 45 tabs 1RF 90 days From metformin ER 2,000 mg (4 x 500 mg) PO QAM 360 tabs 1RF E11.9 - Type 2 diabetes mellitus without complications To metformin ER 2,000 mg (4 x 500 mg) PO QAM 360 tabs 1RF E11.9 - Type 2 diabetes mellitus without complications From albuterol sulfate 90 mcg/actuation 2 puffs PO Q4-6H PRN 8.5 ea 5RF for wheezing To albuterol sulfate 90 mcg/actuation 2 puffs PO Q4-6H PRN 8.5 ea 5RF for wheezing Coding Level of Care Code Est Pt Level 4 (76567) Diagnoses Pure hypercholesterolemia E78.00 Type 2 diabetes mellitus without complication, without long-term current use of insulin E11.9 Diabetes mellitus complication status: without complication Diabetes mellitus terminal operations manager insulin use: without [facility] use Diabetes mellitus type: type 2 Mild intermittent asthma without complication J45.20 Asthma complication type: uncomplicated Asthma persistence: intermittent Asthma severity: mild Elevated LFTs R79.89 Seasonal allergic rhinitis due to pollen J30.1 Allergic rhinitis seasonality: seasonal Allergic rhinitis trigger: pollen Obesity (BMI 30-39.9) E66.9
[2023-12-28 16:28] VITALS: BP 130/70; PULSE 95; O2SAT 95
== END 2023-12-28 17:03 | disposition home or self-care (01) ==
PROVIDERS: PCP Internal Medicine; Visit Provider Internal Medicine
DX: E11.9 Type 2 diabetes mellitus without complications (principal)
CPT/HCPCS: 83036; 99214

== ENCOUNTER 2024-05-05 06:49 | Outpatient (REF) | payer OTHER, SELFPAY ==
[2024-05-05 07:00] LABS: MANUAL DIFF FLAG NO
[2024-05-05 07:48] LABS: Estimated Average Glucose 171 mg/dL; Hemoglobin A1C 191.4374 umol/L; Hemoglobin A1c % 7.6 % (<6.0)
[2024-05-05 07:49] LABS: Appearance Urine Clear; Color Urine Yellow; Glucose Urine UA Negative (Negative); Leukocyte Esterase Urine Negative (Negative); Nitrite Urine Negative (Negative); PH 5.5 (5.0-9.0); Specific Gravity - Urine 1.015 (1.005-1.025); Urine Blood Negative (Negative); Urine Ketones Negative (Negative); Urine Protein Negative (Neg-Trace)
[2024-05-05 08:05] LABS: Creatinine Urine 93.18 mg/dL; Microalbum/Creatinine Ratio Ur 8.5 ug/mg cr (<30)
[2024-05-05 08:15] LABS: Alanine Aminotransferase 89 U/L (0-31); Albumin Level 4.3 g/dL (3.5-5.0); Alkaline Phosphatase 90 U/L (39-117); Anion Gap 14 (12-20); Aspartate Amino Transferase 57 U/L (5-31); Bilirubin Total 0.5 mg/dL (0.0-1.0); Blood Urea Nitrogen 12 mg/dL (9-16); Calcium 9.9 mg/dL (8.4-10.2); Carbon Dioxide 24 mmol/L (22-29); Chloride 105 mmol/L (96-108); Cholesterol 172 mg/dL (<200); Estimated Glomerular Filt Rate > 60; Glucose Fasting 168 mg/dL (60-99); HDL Cholesterol 46 mg/dL (>40); LDL Cholesterol Calculated 97 mg/dL (<100); Potassium 4.2 mmol/L (3.3-5.1); Sodium 139 mmol/L (135-145); Total Protein 7.1 g/dL (6.5-8.0); Triglycerides 145 mg/dL (<150)
[2024-05-05 08:18] LABS: Basophils Percent Auto 0.5 % (0-2); Eosinophils Absolute Auto 0.2 X10*3/uL (0.0-0.4); Eosinophils Percent Auto 3.5 % (0-4); Hematocrit 37.6 % (37.0-47.0); Hemoglobin 12.6 g/dl (12.0-16.0); Imm Gran Abs Auto 0.02 X10*3/uL (0.00-0.03); Imm Gran Pct Auto 0.3 % (0.0-0.4); Lymphocytes Absolute Auto 1.9 X10*3/uL (1.2-4.9); Mean Corpuscular HGB Conc 33.5 g/dl (31.0-35.0); Mean Corpuscular Volume 80.7 fL (80.0-98.0); Mean Platelet Volume 10.3 fL (9.4-12.3); Monocytes Absolute Auto 0.4 X10*3/uL (0.1-1.2); Monocytes Percent Auto 6.1 % (2-11); Neutrophils Absolute Auto 3.4 x10*3/uL (2.0-8.3); Neutrophils Percent Auto 57.6 % (45-73); Platelet Count 193 X10*3/uL (160-400); Red Blood Count 4.66 X10*6/uL (4.20-5.50); Red Cell Distribution Width 13.4 % (11.0-16.0); White Blood Count 5.9 X10*3/uL (4.8-10.8)
[2024-05-05 08:31] LABS: TSH reflex Free T4 1.05 uIU/mL (0.32-4.0); Vitamin D 25-OH Total 43.1 ng/mL (>30)
== END 2024-05-05 06:50 | disposition home or self-care (01) ==
LOC: HO.LAB 06:49
PROVIDERS: PCP Internal Medicine; Visit Provider Internal Medicine
DX: E55.9 Vitamin D deficiency, unspecified (principal); E11.9 Type 2 diabetes mellitus without complications; R30.0 Dysuria; E78.00 Pure hypercholesterolemia, unspecified; D64.9 Anemia, unspecified
CPT/HCPCS: 36415; 80053; 80061; 81003; 82043; 82306; 82570; 83036; 84443; 85025

== ENCOUNTER 2024-05-13 16:25 | Outpatient (AMB) | payer OTHER, SELFPAY ==
--- NOTE | 2024-05-13 16:43 | A.OFFPC_ITS ---
Vital Signs 05/13/24 16:46 Height 5 ft 1 in Weight 178 lb BMI 33.6 BP 132/70 Blood Pressure Location Lt brachial Position Sitting Pulse 78 Pulse Source Pulse Oximeter Pulse Oximetry (%) 94 Oxygen Delivery Method Room Air Intake Visit Reasons: DM, hyperlipidemia, elevated LFTs Intake Note: Patient is here to follow up on DM, HLD, Elevated LFT's. 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 per policy Accompanied by: Self / Same As Patient Allergies atorvastatin Allergy (Intermediate, Verified 05/13/24 17:15) Muscle Pain Medication List - Last Reconciled 05/13/24 by Tony Araujo MD albuterol sulfate 0.63 mg (3 mL) inhalation QID PRN albuterol sulfate 90 mcg/actuation 2 puffs PO Q4-6H PRN blood sugar diagnostic As directed blood sugar diagnostic (FreeStyle Lite Strips) As directed once daily cholecalciferol (vitamin D3) 25 mcg PO DAILY flash glucose scanning reader (FreeStyle [place] 2 [place]) As directed flash glucose sensor (FreeStyle [place] 2 Sensor kit) As directed fluticasone propionate 50 mcg/actuation 1 spray intranasal DAILY ibuprofen 600 mg PO Q6H PRN lidocaine 5% 1 patch topical DAILY loratadine 10 mg PO DAILY magnesium oxide 800 mg (1.6 x 500 mg) PO DAILY metformin ER 2,000 mg (4 x 500 mg) PO QAM rosuvastatin 5 mg (1/2 x 10 mg) PO DAILY 90 days sodium,potassium,mag sulfates 17.5-3.13-1.6 gram (Suprep Bowel Prep Kit) DILUTE; Tobacco use date assessed: 05/13/24 Dental Screening Dental Screen Date: 12/28/23 HPI DM, hyperlipidemia, elevated LFTs HPI Details Patient comes in today for her follow up visit States that she feels okay She denies any headaches or dizziness Denies any chest pains, no SOB No nausea/vomiting, no abdominal pain No change in bowel habits noted She needs her Albuterol Rx refilled States that she is going on a 7 days cruise next week and is requesting for Rx for motion sickness She had her follow up labs done last week - to discuss her results PFSH Medical History Elevated LFTs Pure hypercholesterolemia Obesity (BMI 30-39.9) Allergic rhinitis Asthma Diabetes mellitus Surgical History Hx of colonoscopy History of hysterectomy History of tubal ligation H/O section Family History Father Hypertension Hyperlipidemia Paternal Grandmother Diabetes mellitus Maternal Grandmother Diabetes mellitus Social History Housing: House Alcohol intake: never Patient Tobacco Use Status: Never used Tobacco e-Cigarette/Vaping Use: Never Used Second Hand Smoke Exposure: No service: No Current occupational status: employed Cognitive needs: No Hearing needs: No Vision needs: No Questionnaire Thrive Questionnaire Date Thrive assessed: 12/28/23 Are you currently unemployed and looking for a job?: No ANIA-7 AMB Questionnaire ANIA-7 Date ANIA - 7 assessed: 12/28/23 Source: Developed by Drs. Richard Desai, Adriana Shaw, Loco Stevens and colleagues, with an educational lynnette from [employer]. Review of Systems Const Denies chills, Denies fatigue, Denies fever(s) and Denies headache(s) ENT Denies dysphagia, Denies dizziness, Denies otalgia, Denies headache(s), Denies neck pain, Denies odynophagia and Denies sore throat Card Denies chest pain, Denies palpitations and Denies dyspnea Resp Denies chest congestion, Denies cough and Denies dyspnea GI Denies abdominal pain, Denies constipation, Denies dysphagia, Denies heartburn, Denies diarrhea, Denies nausea, Denies odynophagia and Denies vomiting Denies difficulty voiding, Denies nocturia, Denies dysuria and Denies urinary urgency Musc Denies back pain and Denies neck pain Skin/Breast Denies rash Neuro Denies dizziness and Denies headache(s) Endo Denies fatigue and Denies palpitations Aller/Immun Reports seasonal rhinorrhea Physical exam (Primary Care) Vital Signs: Last Vital Signs Pulse 78 05/13/24 16:46 BP 132/70 05/13/24 16:46 Pulse Ox 94 05/13/24 16:46 Oxygen Delivery Method Room Air 05/13/24 16:46 BMI result Body Mass Index 33.6 Tobacco/Smoking Status: Tobacco use Status Tobacco use date assessed 05/13/24 05/13/24 16:46 Patient Tobacco Use Status Never used Tobacco 05/13/24 16:46 e-Cigarette/Vaping Use Never Used 05/13/24 16:46 Thrive Assessment: Date of Thrive Assessment Date Thrive assessed 12/28/23 05/13/24 16:46 Const General: no acute distress and alert HENMT Ears: TM's normal bilaterally and EAC's normal Throat: Yes posterior oropharynx normal and Yes tonsils normal (no TP congestion noted) Neck Neck: Yes no lymphadenopathy and Yes supple Thyroid: Thyroid normal Resp Auscultation: clear to auscultation bilaterally, no rales and no wheezes Cardio Rate: regular rate Rhythm: regular rhythm Heart sounds: no murmurs GI Palpation (GI): Soft to palpation and nontender Auscultation: normal bowel sounds Skin Rashes: no rashes Extrem General: Yes no clubbing, cyanosis or edema Results Reviewed Results Reviewed: Laboratory Tests 05/05/24 05/05/24 06:52 06:59 WBC 5.9 Hgb 12.6 Hct 37.6 Plt Count 193 Sodium 139 Potassium 4.2 Creatinine 0.73 Estimated GFR > 60 Fasting Glucose 168 H Hemoglobin A1c % 7.6 H Calcium 9.9 AST 57 H ALT 89 H Triglycerides 145 Cholesterol 172 LDL Cholesterol, Calc 97 HDL Cholesterol 46 25-OH Vitamin D Total 43.1 TSH 1.05 Ur Specific [place] 1.015 Urine Protein Negative Urine Glucose (UA) Negative Urine Blood Negative Urine Nitrite Negative Ur Leukocyte Esterase Negative Microalb/Creat Ratio 8.5 Coding Level of Care Code Est Pt Level 4 (93116) Diagnoses Type 2 diabetes mellitus without complication, without long-term current use of insulin E11.9 Diabetes mellitus type: type 2 Diabetes mellitus watermelon inspector insulin use: without alf use Diabetes mellitus complication status: without complication Pure hypercholesterolemia E78.00 Elevated LFTs R79.89 Mild intermittent asthma without complication J45.20 Asthma severity: mild Asthma persistence: intermittent Asthma complication type: uncomplicated Seasonal allergic rhinitis due to pollen J30.1 Allergic rhinitis trigger: pollen Allergic rhinitis seasonality: seasonal Obesity (BMI 30-39.9) E66.9 Assessment & Plan Assessment & Plan (1) Diabetes mellitus: Comment: taking metformin Code(s): E11.9 - Type 2 diabetes mellitus without complications Category: Medical Qualifiers: Diabetes mellitus type: type 2 Diabetes mellitus watermelon inspector insulin use: without watermelon inspector use Diabetes mellitus complication status: without complication Qualified Code(s): E11.9 - Type 2 diabetes mellitus without complications Plan: Patient's HgbA1c remains unchanged from her previous reading at 7.6% on her recent labs, which is still slightly higher than recommended - goal is at least <7.0% Reinforced diabetic diet Continue Metformin ER 500 mg 4 tablets QD Will start her additionally on Januvia 50 mg QD Will recheck her FBS and HgbA1c in 4 months for follow up (2) Pure hypercholesterolemia: Code(s): E78.00 - Pure hypercholesterolemia, unspecified Category: Medical Plan: Results of her labs done last week reviewed and discussed with patient - advised that her cholesterol levels have improved significantly from previous Reinforced low cholesterol diet Continue Rosuvastatin 5 mg every other day - her LFTs are still elevated and taking her statin daily will likely make them worse She was not able to tolerate Atorvastatin in the past due to increased myalgia Will recheck her labs and fasting lipids in 4 months for follow up (3) Elevated LFTs: Code(s): R79.89 - Other specified abnormal findings of blood chemistry Category: Medical Plan: Patient is advised that her LFTs are still elevated on her recent labs and they have increased slightly from previous - this is most likely due to a combination of her weight, cholesterol and Rx Patient states that she does NOT drink alcohol and is presently asymptomatic with no complaints of nausea/vomiting or abdominal pain Abdominal US done back in June 2021 revealed findings consistent with hepatosteatosis with no other abnormalities noted Hepatitis profile done a few months ago also all came back negative Will continue to monitor her LFTs regularly for now (4) Asthma: Code(s): J45.909 - Unspecified asthma, uncomplicated Category: Medical Qualifiers: Asthma severity: mild Asthma persistence: intermittent Asthma complication type: uncomplicated Qualified Code(s): J45.20 - Mild intermittent asthma, uncomplicated Plan: Stable - patient states that her asthma tends to flare up often mostly in the winter time and she has been doing well lately Continue Albuterol HFA 2 puffs 4 times a day as needed - Rx refilled (5) Allergic rhinitis: Code(s): J30.9 - Allergic rhinitis, unspecified Category: Medical Qualifiers: Allergic rhinitis trigger: pollen Allergic rhinitis seasonality: seasonal Qualified Code(s): J30.1 - Allergic rhinitis due to pollen Plan: Patient takes OTC Tamara 180 mg QD PRN with some relief of her symptoms (6) Obesity (BMI 30-39.9): Code(s): E66.9 - Obesity, unspecified Category: Medical Plan: Reinforced diet/exercise as tolerated/lose weight Follow up with Weight Management as scheduled Plan Per request, Rx for Scopolamine patches for motion sickness sent [place] [facility] Follow up in 4 months Orders: Orders Hemoglobin A1c 4 Months E11.9 - Type 2 diabetes mellitus without complications Comprehensive [place]. Panel Fast 4 Months E78.00 - Pure hypercholesterolemia, unspecified Lipid Panel 4 Months E78.00 - Pure hypercholesterolemia, unspecified Microalbumin, Random (w Creat) 4 Months E11.9 - Type 2 diabetes mellitus without complications TSH reflex Free T4 4 Months E78.00 - Pure hypercholesterolemia, unspecified Vitamin D 25-OH Total 4 Months E55.9 - Vitamin D deficiency, unspecified Complete Blood Count Auto Diff 4 Months D64.9 - Anemia, unspecified UA CC w/rflx Micro + Cult 4 Months R30.0 - Dysuria Vitamin B12 and Folate 4 Months E53.8 - Deficiency of other specified B group vitamins Medications: New Januvia (sitagliptin phosphate) 50 mg PO DAILY 90 days 90 tabs 1RF NS blood-glucose meter (FreeStyle Lite Meter kit) As directed 1 ea 0RF E11.9 - Type 2 diabetes mellitus without complications scopolamine base (Transderm-Scop) 1 patch transdermal Q3D PRN 10 ea 0RF nausea and vomiting/motion sickness Refilled albuterol sulfate 90 mcg/actuation 2 puffs PO Q4-6H PRN 8.5 ea 5RF for wheezing
[2024-05-13 16:46] VITALS: BP 132/70; PULSE 78; O2SAT 94; BMI 33.6
== END 2024-05-13 17:26 | disposition home or self-care (01) ==
PROVIDERS: PCP Internal Medicine; Visit Provider Internal Medicine
DX: E11.9 Type 2 diabetes mellitus without complications (principal); E66.9 Obesity, unspecified; E78.00 Pure hypercholesterolemia, unspecified; Z68.33 Body mass index [BMI] 33.0-33.9, adult; R79.89 Other specified abnormal findings of blood chemistry; J45.20 Mild intermittent asthma, uncomplicated; J30.1 Allergic rhinitis due to pollen

== ENCOUNTER → 2024-05-13 16:25 | Outpatient (BNVA) | payer OTHER, SELFPAY | PROVIDERS: PCP Internal Medicine; Visit Provider Internal Medicine ==

== ENCOUNTER 2024-07-16 09:16 | Outpatient (AMB) | payer OTHER, SELFPAY ==
[2024-07-16 09:54] VITALS: BP 150/62; PULSE 68; TEMP 36.6; O2SAT 100; BMI 34.4
--- NOTE | 2024-07-16 09:54 | MHC.OFFWIV ---
Intake Vital Signs 07/16/24 09:54 Height 5 ft 1 in Weight 182 lb BMI 34.4 BP 150/62 H Blood Pressure Location Lt brachial Position Sitting Pulse 68 Pulse Source Pulse Oximeter Temp 97.8 F Temp Source Oral Pulse Oximetry (%) 100 Oxygen Delivery Method Room Air Intake Visit Reasons: EP-Sinus? Intake Note: Pt is here today c/o sinus pressure and teeth pain Patient Tobacco Use Status: Never used Tobacco Allergies atorvastatin Allergy (Intermediate, Verified 07/16/24 09:55) Muscle Pain hazelnut Adverse Reaction (Uncoded 07/16/24 09:55) Anaphylaxis peanuts Adverse Reaction (Uncoded 07/16/24 09:55) Angioedema HPI EP-Sinus? HPI Details Patient has complaints of severe sinus pain and pressure at frontal and maxillary sinuses. Pain is extending into upper teeth No fevers but mild chills Minimal ear pain. No sore throat. PFSH Medical History Elevated LFTs Pure hypercholesterolemia Obesity (BMI 30-39.9) Allergic rhinitis Asthma Diabetes mellitus Surgical History Hx of colonoscopy History of hysterectomy History of tubal ligation H/O section Family History Father Hypertension Hyperlipidemia Paternal Grandmother Diabetes mellitus Maternal Grandmother Diabetes mellitus Social History Housing: House Alcohol intake: never Patient Tobacco Use Status: Never used Tobacco e-Cigarette/Vaping Use: Never Used Second Hand Smoke Exposure: No service: No Current occupational status: employed Cognitive needs: No Hearing needs: No Vision needs: No Review of Systems ENT Details: See HPI Physical Exam Vital Signs: Last Vital Signs Temp 97.8 F 07/16/24 09:54 Pulse 68 07/16/24 09:54 BP 150/62 H 07/16/24 09:54 Pulse Ox 100 07/16/24 09:54 Oxygen Delivery Method Room Air 07/16/24 09:54 BMI result Body Mass Index 34.4 HEENT Other: Significant erythema and swelling at nasal mucosa with blood tinging. Significant pain/pressure at frontal and maxillary sinuses to palpation Assessment & Plan Assessment & Plan (1) Sinus infection: Code(s): J32.9 - Chronic sinusitis, unspecified Plan: Will give her script for a Z-Freddie as she notes that several other antibiotics give her GI upset. She should use her nasal steroid which she has not been using. Can also use saline flushes throughout her day but not within 30 minutes of nasal steroid Warm compresses on forehead and cheeks Ibuprofen for pain as needed Hydrate well Get plenty of rest Medications: New azithromycin (Zithromax Z-Freddie) take 500 mg today (day 1), then 250 mg for 4 days (days 2-5) PO 5 days 6 tabs 0RF Refilled fluticasone propionate 50 mcg/actuation administer into each nostril 1 spray intranasal DAILY 16 grams 1RF Coding Level of Care Code Est Pt Level 3 (98766) Diagnoses Sinus infection J32.9
== END 2024-07-16 12:04 | disposition home or self-care (01) ==
PROVIDERS: PCP Internal Medicine; Visit Provider Family Medicine
DX: J32.9 Chronic sinusitis, unspecified (principal)

== ENCOUNTER → 2024-07-16 09:16 | Outpatient (BNVA) | payer OTHER, SELFPAY | PROVIDERS: PCP Internal Medicine ==

== ENCOUNTER 2024-12-12 06:44 | Outpatient (REF) | payer OTHER, SELFPAY ==
[2024-12-12 06:58] LABS: MANUAL DIFF FLAG NO
[2024-12-12 07:33] LABS: Estimated Average Glucose 151 mg/dL; Hemoglobin A1C 170.2701 umol/L; Hemoglobin A1c % 6.9 % (<6.0); Total Hemoglobin (HGBA1C) 3273.7328 umol/L
[2024-12-12 07:36] LABS: Basophils Percent Auto 0.8 % (0-2); Eosinophils Absolute Auto 0.3 X10*3/uL (0.0-0.4); Eosinophils Percent Auto 6.1 % (0-4); Hematocrit 36.6 % (37.0-47.0); Hemoglobin 12.4 g/dl (12.0-16.0); Imm Gran Abs Auto 0.01 X10*3/uL (0.00-0.03); Imm Gran Pct Auto 0.2 % (0.0-0.4); Lymphocytes Absolute Auto 1.5 X10*3/uL (1.2-4.9); Lymphocytes Percent Auto 28.1 % (20-40); Mean Corpuscular HGB Conc 33.9 g/dl (31.0-35.0); Mean Corpuscular Hemoglobin 26.9 pg (27.0-33.0); Mean Corpuscular Volume 79.4 fL (80.0-98.0); Monocytes Absolute Auto 0.3 X10*3/uL (0.1-1.2); Monocytes Percent Auto 6.3 % (2-11); Neutrophils Absolute Auto 3.1 x10*3/uL (2.0-8.3); Neutrophils Percent Auto 58.5 % (45-73); Platelet Count 185 X10*3/uL (160-400); Red Blood Count 4.61 X10*6/uL (4.20-5.50); Red Cell Distribution Width 13.5 % (11.0-16.0); White Blood Count 5.3 X10*3/uL (4.8-10.8)
[2024-12-12 08:00] LABS: Alanine Aminotransferase 91 U/L (0-31); Albumin Level 4.2 g/dL (3.5-5.0); Alkaline Phosphatase 103 U/L (39-117); Anion Gap 12 (12-20); Aspartate Amino Transferase 48 U/L (5-31); Bilirubin Total 0.5 mg/dL (0.0-1.0); Blood Urea Nitrogen 11 mg/dL (9-16); Calcium 8.9 mg/dL (8.4-10.2); Carbon Dioxide 24 mmol/L (22-29); Chloride 105 mmol/L (96-108); Cholesterol 231 mg/dL (<200); Estimated Glomerular Filt Rate > 60; Glucose Fasting 254 mg/dL (60-99); HDL Cholesterol 50 mg/dL (>40); LDL Cholesterol Calculated 151 mg/dL (<100); Sodium 137 mmol/L (135-145); Triglycerides 154 mg/dL (<150)
[2024-12-12 08:17] LABS: TSH reflex Free T4 0.79 uIU/mL (0.32-4.0); Vitamin D 25-OH Total 35.3 ng/mL (>30)
[2024-12-12 08:20] LABS: Folate 12.2 ng/mL (> or = 4.0); Vitamin B12 435 pg/mL (200-900)
[2024-12-12 14:08] LABS: Appearance Urine Clear; Color Urine Yellow; Glucose Urine UA Negative (Negative); Leukocyte Esterase Urine Negative (Negative); Nitrite Urine Negative (Negative); PH 5.5 (5.0-9.0); Specific Gravity - Urine 1.025 (1.005-1.025); Urine Blood Negative (Negative); Urine Ketones Trace mg/dL (Negative); Urine Protein Negative (Neg-Trace)
[2024-12-12 14:26] LABS: Creatinine Urine 121.88 mg/dL; Microalbum/Creatinine Ratio Ur 10.6 ug/mg cr (<30)
== END 2024-12-12 06:45 | disposition home or self-care (01) ==
LOC: HO.LAB 06:44
PROVIDERS: PCP Internal Medicine; Visit Provider Internal Medicine
DX: D64.9 Anemia, unspecified (principal); E78.00 Pure hypercholesterolemia, unspecified; E11.9 Type 2 diabetes mellitus without complications; E55.9 Vitamin D deficiency, unspecified; E53.8 Deficiency of other specified B group vitamins; R30.0 Dysuria
CPT/HCPCS: 36415; 80053; 80061; 81003; 82043; 82306; 82570; 82607; 82746; 83036; 84443; 85025

== ENCOUNTER 2025-01-04 16:52 | Outpatient (AMB) | payer OTHER, SELFPAY ==
[2025-01-04 16:55] VITALS: BP 130/72; PULSE 96; O2SAT 98; BMI 34.0
--- NOTE | 2025-01-04 16:55 | A.OFFPC_ITS ---
Vital Signs 01/04/25 16:55 Height 5 ft 1 in Weight 180 lb BMI 34.0 BP 130/72 Blood Pressure Location Lt brachial Position Sitting Pulse 96 Pulse Source Pulse Oximeter Pulse Oximetry (%) 98 Oxygen Delivery Method Room Air Intake Visit Reasons: DM, hyperlipidemia, elevated LFTs, HTN, asthma Accompanied by: Self / Same As Patient Allergies atorvastatin Allergy (Intermediate, Verified 01/04/25 17:38) Muscle Pain hazelnut Adverse Reaction (Uncoded 01/04/25 17:38) Anaphylaxis peanuts Adverse Reaction (Uncoded 01/04/25 17:38) Angioedema Medication List - Last Reconciled 01/04/25 by Tony Araujo MD albuterol sulfate 0.63 mg (3 mL) inhalation QID PRN albuterol sulfate 90 mcg/actuation 2 puffs PO Q4-6H PRN azithromycin (Zithromax Z-Freddie) take 500 mg today (day 1), then 250 mg for 4 days (days 2-5) PO 5 days blood sugar diagnostic As directed blood sugar diagnostic (FreeStyle Lite Strips) As directed once daily blood-glucose meter (FreeStyle Lite Meter kit) As directed cholecalciferol (vitamin D3) 25 mcg PO DAILY flash glucose scanning reader (FreeStyle [place] 2 [place]) As directed flash glucose sensor (FreeStyle Fernando 2 Sensor kit) As directed fluticasone propionate 50 mcg/actuation 1 spray intranasal DAILY ibuprofen 600 mg PO Q6H PRN Januvia (sitagliptin phosphate) 50 mg PO DAILY 90 days NS lidocaine 5% 1 patch topical DAILY loratadine 10 mg PO DAILY magnesium oxide 800 mg (1.6 x 500 mg) PO DAILY metformin ER 2,000 mg (4 x 500 mg) PO QAM rosuvastatin 5 mg (1/2 x 10 mg) PO DAILY 90 days scopolamine base (Transderm-Scop) 1 patch transdermal Q3D PRN sodium,potassium,mag sulfates 17.5-3.13-1.6 gram (Suprep Bowel Prep Kit) DILUTE; Tobacco use date assessed: 01/04/25 Dental Screening Dental Screen Date: 01/04/25 Did you have a dental visit in the last 12 months?: Yes Did you have a dental problem in the last 6 months where you did not have access to dental care?: No Was dental information given to patient?: Patient has dentist HPI DM, hyperlipidemia, elevated LFTs, HTN, asthma HPI Details Patient comes in today for her follow up visit States that she feels okay but she is not happy with her recent lab results when she went over them on her patient portal a few days ago She denies any headaches or dizziness Denies any chest pains, no SOB No nausea/vomiting, no abdominal pain No change in bowel habits noted She had her follow up labs done a few weeks ago - to discuss her results [facility] Medical History Elevated LFTs Pure hypercholesterolemia Obesity (BMI 30-39.9) Allergic rhinitis Asthma Diabetes mellitus Surgical History Hx of colonoscopy History of hysterectomy History of tubal ligation H/O section Family History Father Hypertension Hyperlipidemia Paternal Grandmother Diabetes mellitus Maternal Grandmother Diabetes mellitus Social History Housing: House Alcohol intake: never Patient Tobacco Use Status: Never used Tobacco e-Cigarette/Vaping Use: Never Used Second Hand Smoke Exposure: No service: No Current occupational status: employed Cognitive needs: No Hearing needs: No Vision needs: No Questionnaire PHQ-9 Over the last 2 weeks, how often have you been bothered by any of the following problems? 1. Little interest or pleasure in doing things: not at all 2. Feeling down, depressed, or hopeless: not at all 3. Trouble falling or staying asleep, or sleeping too much: not at all 4. Feeling tired or having little energy: not at all 5. Poor appetite or overeating: not at all 6. Feeling bad about yourself - or that you are a failure or have let yourself or your family down: not at all 7. Trouble concentrating on things, such as reading the newspaper or watching television: not at all 8. Moving or speaking so slowly that other people could have noticed. Or the opposite - being so fidgety or restless that you have been moving around a lot more than usual: not at all 9. Thoughts that you would be better off or of hurting yourself in some way: not at all Total score: 0 Depression Screening Interpretation: Negative Depression Screening Done: Yes 60579 - PHQ-9 Billing: Yes Source: Developed by Drs. Richard Desai, Loco Gan and colleagues, with an educational lynnette from [employer]. Thrive Questionnaire Date Thrive assessed: 01/04/25 I am a: Patient What is your living situation today?: I have a steady place to live Within the past 12 months, did the food you bought not last and you didn't have the money to get more?: Never true Within the past 12 months, did you worry whether your food would run out before you got money to buy more?: Never true Do you have trouble paying for medicines?: No Do you have trouble getting transportation to medical appointments?: No Do you have trouble paying your heating and electricity bill?: No Do you have trouble taking care of your child, family member or friend?: No Do you have trouble with day-to-day activities such as bathing, preparing meals, shopping, managing finances, etc.?: No Are you currently unemployed and looking for a job?: No Are you interested in more education?: I choose not to answer this question Please select the resources that you would like help with: None Currently or been in a relationship where the following occur: No concerns reported THRIVE Score: 0 AUDIT C Alcohol Use Questionnaire (AUDIT-C) 1. How often do you have a drink containing alcohol?: Never 3. How often do you have six or more drinks on one occasion?: Never Total Score: 0 Score Reviewed/Action Taken: Yes ANIA-7 AMB Questionnaire ANIA-7 Date ANIA - 7 assessed: 01/04/25 Feeling nervous, anxious, or on edge: 0 = Not at all Not being able to stop or control worryin = Not at all Worrying too much about different things: 1 = Several days Trouble relaxin = Not at all Being so restless that it is hard to sit still: 1 = Several days Feeling afraid as if something awful might happen: 0 = Not at all Source: Developed by Drs. Richard Desai, Loco Gan and colleagues, with an educational lynnette from [employer]. Review of Systems Const Denies chills, Denies fatigue, Denies fever(s) and Denies headache(s) ENT Denies dysphagia, Denies dizziness, Denies otalgia, Denies headache(s), Denies neck pain, Denies odynophagia and Denies sore throat Card Denies chest pain, Denies palpitations and Denies dyspnea Resp Denies chest congestion, Denies cough and Denies dyspnea GI Denies abdominal pain, Denies constipation, Denies dysphagia, Denies heartburn, Denies diarrhea, Denies nausea, Denies odynophagia and Denies vomiting Denies difficulty voiding, Denies nocturia, Denies dysuria and Denies urinary urgency Musc Denies back pain and Denies neck pain Skin/Breast Denies rash Neuro Denies dizziness and Denies headache(s) Endo Denies fatigue and Denies palpitations Aller/Immun Reports seasonal rhinorrhea Physical exam (Primary Care) Vital Signs: Last Vital Signs BP 130/72 01/04/25 16:55 Pulse Ox 8 L 01/04/25 16:55 Oxygen Delivery Method Room Air 01/04/25 16:55 Tobacco/Smoking Status: Tobacco use Status Tobacco use date assessed 05/13/24 05/13/24 16:46 Patient Tobacco Use Status Never used Tobacco 07/16/24 09:59 e-Cigarette/Vaping Use Never Used 05/13/24 16:46 Depression Screening Interpretation: Negative Thrive Assessment: Date of Thrive Assessment Date Thrive assessed 12/29/24 12/29/24 05:44 Currently or been in a relationship where the following occur: No concerns reported Const General: no acute distress and alert HENMT Ears: TM's normal bilaterally and EAC's normal Throat: Yes posterior oropharynx normal and Yes tonsils normal (no TP congestion noted) Neck Neck: Yes supple and No lymphadenopathy Thyroid: Thyroid normal Resp Auscultation: clear to auscultation bilaterally, no rales and no wheezes Cardio Rate: regular rate Rhythm: regular rhythm Heart sounds: no murmurs GI Palpation (GI): Soft to palpation and nontender Auscultation: normal bowel sounds Skin Rashes: no rashes Extrem General: Yes no clubbing, cyanosis or edema Results Reviewed Results Reviewed: Laboratory Tests 12/12/24 12/12/24 06:57 12:46 WBC 5.3 Hgb 12.4 Hct 36.6 L Plt Count 185 Sodium 137 Potassium 4.0 Creatinine 0.70 Estimated GFR > 60 Fasting Glucose 254 H Hemoglobin A1c % 6.9 H Calcium 8.9 D AST 48 H ALT 91 H Triglycerides 154 H Cholesterol 231 H LDL Cholesterol, Calc 151 H HDL Cholesterol 50 Vitamin B12 435 25-OH Vitamin D Total 35.3 TSH 0.79 Ur Specific [place] 1.025 Urine Protein Negative Urine Glucose (UA) Negative Urine Blood Negative Urine Nitrite Negative Ur Leukocyte Esterase Negative Microalb/Creat Ratio 10.6 Coding Level of Care Code Est Pt Level 4 (18056) Complex EM visit Add On G2211 Diagnoses Type 2 diabetes mellitus without complication, without long-term current use of insulin E11.9 Diabetes mellitus type: type 2 Diabetes mellitus senior living insulin use: without senior living use Diabetes mellitus complication status: without complication Pure hypercholesterolemia E78.00 Elevated LFTs R79.89 Mild intermittent asthma without complication J45.20 Asthma severity: mild Asthma persistence: intermittent Asthma complication type: uncomplicated Seasonal allergic rhinitis due to pollen J30.1 Allergic rhinitis trigger: pollen Allergic rhinitis seasonality: seasonal Obesity (BMI 30-39.9) E66.9 Additional Codes PHQ-9 - 96750 - PHQ-9 Billing: Yes ([id number]) Assessment & Plan Assessment & Plan (1) Diabetes mellitus: Comment: taking metformin Code(s): E11.9 - Type 2 diabetes mellitus without complications Category: Medical Qualifiers: Diabetes mellitus type: type 2 Diabetes mellitus flush tester insulin use: without flush tester use Diabetes mellitus complication status: without complication Qualified Code(s): E11.9 - Type 2 diabetes mellitus without complications Plan: Patient's HgbA1c was at 6.9% on her labs done a few weeks ago (was at 7.6% a few months ago) - goal is at least <7.0% Reinforced diabetic diet Continue Metformin ER 500 mg 4 tablets QD and Januvia 50 mg QD Will start her additionally on Ozempic 0.25 mg SQ once a week Will recheck her FBS and HgbA1c in 3 months for follow up (2) Pure hypercholesterolemia: Code(s): E78.00 - Pure hypercholesterolemia, unspecified Category: Medical Plan: Results of her labs done a few weeks ago reviewed and discussed with patient - she is advised that her cholesterol levels have increased significantly from previous Reinforced low cholesterol diet Continue Rosuvastatin 5 mg every other day for now, as her LFTs are still elevated and taking her statin daily will likely make them worse She was not able to tolerate Atorvastatin in the past due to increased myalgia Will recheck her labs and fasting lipids in 3 months for follow up (3) Elevated LFTs: Code(s): R79.89 - Other specified abnormal findings of blood chemistry Category: Medical Plan: Patient is advised that her LFTs are still elevated on her recent labs and they have increased again slightly from previous - this is most likely again due to a combination of her weight, cholesterol and Rx Patient states that she does NOT drink alcohol and is presently asymptomatic with no complaints of nausea/vomiting or abdominal pain Abdominal US done back in June 2021 revealed findings consistent with hepatosteatosis with no other abnormalities noted Hepatitis profile done last year all came back negative Will continue to monitor her LFTs regularly for now but will also check her liver fibrosis panel in 3 months and if her liver fibrosis is significant or advanced, will need to address this more urgently (4) Asthma: Code(s): J45.909 - Unspecified asthma, uncomplicated Category: Medical Qualifiers: Asthma severity: mild Asthma persistence: intermittent Asthma complication type: uncomplicated Qualified Code(s): J45.20 - Mild intermittent asthma, uncomplicated Plan: Controlled - patient states that her asthma tends to flare up often mostly in the winter time and she has been doing well lately Continue Albuterol HFA 2 puffs 4 times a day as needed (5) Allergic rhinitis: Code(s): J30.9 - Allergic rhinitis, unspecified Category: Medical Qualifiers: Allergic rhinitis trigger: pollen Allergic rhinitis seasonality: seasonal Qualified Code(s): J30.1 - Allergic rhinitis due to pollen Plan: Patient takes OTC Tamara 180 mg QD PRN with some relief of her symptoms (6) Obesity (BMI 30-39.9): Code(s): E66.9 - Obesity, unspecified Category: Medical Plan: Reinforced diet/exercise as tolerated/lose weight Follow up with Weight Management as scheduled Plan Follow up in 3 months Orders: Orders Lipid Panel 3 Months E78.00 - Pure hypercholesterolemia, unspecified TSH reflex Free T4 3 Months E78.00 - Pure hypercholesterolemia, unspecified Vitamin D 25-OH Total 3 Months E55.9 - Vitamin D deficiency, unspecified Vitamin B12 and Folate 3 Months E53.8 - Deficiency of other specified B group vitamins Complete Blood Count Auto Diff 3 Months D64.9 - Anemia, unspecified Comprehensive [place]. Panel Fast 3 Months E78.00 - Pure hypercholesterolemia, unspecified UA CC w/rflx Micro + Cult 3 Months R30.0 - Dysuria Microalbumin, Random (w Creat) 3 Months E11.9 - Type 2 diabetes mellitus without complications Liver Fibrosis Pnl 3 Months R79.89 - Other specified abnormal findings of blood chemistry Hemoglobin A1c 3 Months E11.9 - Type 2 diabetes mellitus without complications Medications: New semaglutide (Ozempic) for 4 weeks 0.25 mg (0.368 mL) subcut QWEEK 4 weeks 3 mL 3RF E11.9 - Type 2 diabetes mellitus without complications semaglutide (Ozempic) for 4 weeks 0.25 mg (0.368 mL) subcut QWEEK 4 weeks 3 mL 3RF E11.9 - Type 2 diabetes mellitus without complications
== END 2025-01-04 17:26 | disposition home or self-care (01) ==
LOC: HO.HMCH 16:52
PROVIDERS: PCP Internal Medicine; Visit Provider Internal Medicine
DX: E11.9 Type 2 diabetes mellitus without complications (principal); E78.00 Pure hypercholesterolemia, unspecified; E66.9 Obesity, unspecified; Z68.34 Body mass index [BMI] 34.0-34.9, adult; R79.89 Other specified abnormal findings of blood chemistry; J45.20 Mild intermittent asthma, uncomplicated; J30.1 Allergic rhinitis due to pollen

== ENCOUNTER → 2025-01-04 16:52 | Outpatient (BNVA) | payer OTHER, SELFPAY | PROVIDERS: PCP Internal Medicine; Visit Provider Internal Medicine | DX: E11.9 Type 2 diabetes mellitus without complications (principal); E78.5 Hyperlipidemia, unspecified; I10 Essential (primary) hypertension; R79.89 Other specified abnormal findings of blood chemistry; E78.00 Pure hypercholesterolemia, unspecified; J45.20 Mild intermittent asthma, uncomplicated; J30.1 Allergic rhinitis due to pollen; E66.9 Obesity, unspecified; D64.9 Anemia, unspecified; E55.9 Vitamin D deficiency, unspecified; R30.0 Dysuria; Z68.34 Body mass index [BMI] 34.0-34.9, adult | CPT/HCPCS: 96127 ==

== ENCOUNTER 2025-04-27 06:45 | Outpatient (REF) | payer OTHER, SELFPAY ==
[2025-04-27 07:12] LABS: MANUAL DIFF FLAG NO
[2025-04-27 07:42] LABS: Hematocrit 36.2 % (37.0-47.0); Hemoglobin 12.5 g/dl (12.0-16.0); Imm Gran Abs Auto 0.03 X10*3/uL (0.00-0.03); Imm Gran Pct Auto 0.5 % (0.0-0.4); Lymphocytes Absolute Auto 1.8 X10*3/uL (1.2-4.9); Mean Corpuscular HGB Conc 34.5 g/dl (31.0-35.0); Mean Corpuscular Hemoglobin 27.1 pg (27.0-33.0); Mean Corpuscular Volume 78.5 fL (80.0-98.0); NRBC Abs Auto 0.000 X10*3/uL (0.0-0.012); NRBC Pct Auto 0.0 /100WBC (0.0-0.2); Platelet Count 194 X10*3/uL (160-400); Red Blood Count 4.61 X10*6/uL (4.20-5.50); White Blood Count 5.8 X10*3/uL (4.8-10.8)
[2025-04-27 08:23] LABS: Appearance Urine Clear; Glucose Urine UA Negative (Negative); PH 5.5 (5.0-9.0); Specific Gravity - Urine 1.010 (1.005-1.025)
[2025-04-27 09:09] LABS: Alanine Aminotransferase 75 U/L (0-31); Albumin Level 4.5 g/dL (3.5-5.0); Alkaline Phosphatase 85 U/L (39-117); Anion Gap 9 (12-20); Aspartate Amino Transferase 51 U/L (5-31); Blood Urea Nitrogen 11 mg/dL (9-16); Calcium 9.0 mg/dL (8.4-10.2); Carbon Dioxide 25 mmol/L (22-29); Chloride 110 mmol/L (96-108); Cholesterol 171 mg/dL (<200); Estimated Glomerular Filt Rate > 60; HDL Cholesterol 42 mg/dL (>40); Potassium 4.0 mmol/L (3.3-5.1); Sodium 140 mmol/L (135-145); Total Protein 6.8 g/dL (6.5-8.0); Triglycerides 142 mg/dL (<150)
[2025-04-27 09:13] LABS: Folate 9.5 ng/mL (> or = 4.0); Vitamin B12 359 pg/mL (200-900)
[2025-04-27 09:25] LABS: Hemoglobin A1C 139.0632 umol/L; Total Hemoglobin (HGBA1C) 3229.9000 umol/L
[2025-05-06 17:48] LABS: FIB-ALT 53 U/L (6-29); FIB-Alpha-2-Macroglobulin 108 mg/dL (106-279); FIB-Apolipoprotein A1 155 mg/dL (101-198); FIB-GGT 135 U/L (3-65); FIB-Haptoglobin 142 mg/dL (43-212); FIB-Total Bilirubin 0.3 mg/dL (0.2-1.2); Liver Fibrosis Score 0.09; Liver Fibrosis Stage F0; Nec Inflam Act Grade A0-A1; Nec Inflam Act Score 0.25
== END 2025-04-27 06:46 | disposition home or self-care (01) ==
LOC: HO.LAB 06:45
PROVIDERS: PCP Internal Medicine; Visit Provider Internal Medicine
DX: E11.9 Type 2 diabetes mellitus without complications (principal); E78.00 Pure hypercholesterolemia, unspecified; E53.8 Deficiency of other specified B group vitamins; D64.9 Anemia, unspecified; E55.9 Vitamin D deficiency, unspecified; R30.0 Dysuria; R79.89 Other specified abnormal findings of blood chemistry
CPT/HCPCS: 36415; 80053; 80061; 81003; 81596; 82043; 82306; 82570; 82607; 82746; 83036; 84443; 85025

== ENCOUNTER 2025-04-28 10:49 | Outpatient (REF) | payer OTHER, SELFPAY ==
--- NOTE | ~2025-04-28 | XR_ITS ---
EXAMINATION: XR SACROILIAC JOINTS CLINICAL INFORMATION: M54.50 - Low back pain, unspecified COMPARISON: None available. TECHNIQUE: 3 views of the sacroiliac joints FINDINGS: Minimal osteophytes are seen involving inferior SI joints. SI joint spaces are symmetrical without erosions or fusion. XR/XR sacroiliac joint min 3V IMPRESSION: Very mild degenerative change of the SI joints. Electronically signed by: Akash Broussard MD 04/28/2025 05:35 PM EDT
--- NOTE | ~2025-04-28 | XR_ITS ---
EXAMINATION: XR LUMBOSACRAL SPINE CLINICAL INFORMATION: M54.50 - Low back pain, unspecified COMPARISON: None available. TECHNIQUE: Three views of the lumbosacral spine. FINDINGS: There are 5 nonrib-bearing lumbar segments. There is mild wedging of T12. L5 demonstrates elongated transverse processes that pseudoarticulating with the medial iliac bone. There is incomplete disc formation at L5-S1. Small anterior osteophytes are visible throughout the lumbar spine. 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 Mild wedging of T12 is probably physiologic in nature. If there has been trauma, mild compression fracture is not ruled out. Electronically signed by: Akash Broussard MD 04/28/2025 05:39 PM EDT
== END 2025-04-28 10:50 | disposition home or self-care (01) ==
LOC: HO.XRAY 10:49
PROVIDERS: PCP Internal Medicine; Visit Provider Internal Medicine
DX: M54.50 Low back pain, unspecified (principal); E11.9 Type 2 diabetes mellitus without complications; E78.00 Pure hypercholesterolemia, unspecified; R79.89 Other specified abnormal findings of blood chemistry; J45.20 Mild intermittent asthma, uncomplicated; J30.1 Allergic rhinitis due to pollen; E66.9 Obesity, unspecified; Z68.33 Body mass index [BMI] 33.0-33.9, adult; Z79.84 Long term (current) use of oral hypoglycemic drugs
CPT/HCPCS: 72100; 72202; 96127

== ENCOUNTER 2025-04-28 10:49 | Outpatient (AMB) | payer OTHER, SELFPAY ==
--- NOTE | 2025-04-28 10:53 | MHC.PC.OV ---
Vital Signs 04/28/25 10:54 Height 5 ft 1 in Weight 175 lb BMI 33.1 BP 124/80 Blood Pressure Location Lt brachial Position Sitting Pulse 78 Pulse Source Pulse Oximeter Temp 97.3 F Temp Source Temporal Artery Scan Pulse Oximetry (%) 98 Oxygen Delivery Method Room Air Intake Visit Reasons: DM, hyperlipidemia, elevated LFTs Intake Note: Patient is here to follow up on DM, HLD, Elevated LFT's. 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 Accompanied by: Self / Same As Patient Allergies atorvastatin Allergy (Intermediate, Verified 04/28/25 11:24) Muscle Pain hazelnut Adverse Reaction (Uncoded 04/28/25 11:24) Anaphylaxis peanuts Adverse Reaction (Uncoded 04/28/25 11:24) Angioedema Medication List - Last Reconciled 04/28/25 by Tony Araujo MD albuterol sulfate 0.63 mg (3 mL) inhalation QID PRN albuterol sulfate 90 mcg/actuation 2 puffs PO Q4-6H PRN blood sugar diagnostic As directed blood sugar diagnostic (FreeStyle Lite Strips) As directed once daily blood-glucose meter (FreeStyle Lite Meter kit) As directed cholecalciferol (vitamin D3) 25 mcg PO DAILY flash glucose scanning reader (FreeStyle Fernando 2 Marlow) As directed flash glucose sensor (FreeStyle Fernando 2 Sensor kit) As directed fluticasone propionate 50 mcg/actuation 1 spray intranasal DAILY ibuprofen 600 mg PO Q6H PRN Januvia (sitagliptin phosphate) 50 mg PO DAILY 90 days NS lidocaine 5% 1 patch topical DAILY loratadine 10 mg PO DAILY magnesium oxide 800 mg (1.6 x 500 mg) PO DAILY metformin ER 2,000 mg (4 x 500 mg) PO QAM rosuvastatin 5 mg (1/2 x 10 mg) PO DAILY 90 days scopolamine base (Transderm-Scop) 1 patch transdermal Q3D PRN semaglutide (Ozempic) 0.25 mg (0.368 mL) subcut QWEEK 4 weeks sodium,potassium,mag sulfates 17.5-3.13-1.6 gram (Suprep Bowel Prep Kit) DILUTE; Tobacco use date assessed: 04/28/25 Dental Screening Dental Screen Date: 01/04/25 HPI DM, hyperlipidemia, elevated LFTs HPI Details Patient comes in today for her follow up visit States that she feels okay except for increased pain over her lower back for the past couple of weeks Notes that her lower back pain gets worse towards the later part of the day, especially when she is at work Thinks that she may have strained or pulled something in her lower back recently 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 She denies any headaches or dizziness Denies any chest pains, no SOB No nausea/vomiting, no abdominal pain No change in bowel habits noted She had her follow up labs done yesterday - to discuss her results [facility] Medical History Elevated LFTs Pure hypercholesterolemia Obesity (BMI 30-39.9) Allergic rhinitis Asthma Diabetes mellitus Surgical History Hx of colonoscopy History of hysterectomy History of tubal ligation H/O section Family History Father Hypertension Hyperlipidemia Paternal Grandmother Diabetes mellitus Maternal Grandmother Diabetes mellitus Social History Housing: House Alcohol intake: never Patient Tobacco Use Status: Never used Tobacco e-Cigarette/Vaping Use: Never Used Second Hand Smoke Exposure: No service: No Current occupational status: employed Cognitive needs: No Hearing needs: No Vision needs: No Questionnaire PHQ-9 Over the last 2 weeks, how often have you been bothered by any of the following problems? 1. Little interest or pleasure in doing things: not at all 2. Feeling down, depressed, or hopeless: not at all 3. Trouble falling or staying asleep, or sleeping too much: nearly every day 4. Feeling tired or having little energy: several days 5. Poor appetite or overeating: not at all 6. Feeling bad about yourself - or that you are a failure or have let yourself or your family down: not at all 7. Trouble concentrating on things, such as reading the newspaper or watching television: not at all 8. Moving or speaking so slowly that other people could have noticed. Or the opposite - being so fidgety or restless that you have been moving around a lot more than usual: not at all 9. Thoughts that you would be better off or of hurting yourself in some way: not at all Total score: 4 Depression Screening Interpretation: Positive Depression Screening Follow-up: Follow-up Visit Requested Depression Screening Done: Yes 55932 - PHQ-9 Billing: Yes Source: Developed by Drs. Richard Desai, Adriana Shaw, Loco Stevens and colleagues, with an educational lynnette from [employer]. Thrive Questionnaire Date Thrive assessed: 04/28/25 I am a: Patient What is your living situation today?: I have a steady place to live Within the past 12 months, did the food you bought not last and you didn't have the money to get more?: Never true Within the past 12 months, did you worry whether your food would run out before you got money to buy more?: Never true Do you have trouble paying for medicines?: No Do you have trouble getting transportation to medical appointments?: No Do you have trouble paying your heating and electricity bill?: No Do you have trouble taking care of your child, family member or friend?: No Do you have trouble with day-to-day activities such as bathing, preparing meals, shopping, managing finances, etc.?: No Are you currently unemployed and looking for a job?: No Are you interested in more education?: I choose not to answer this question Please select the resources that you would like help with: None Currently or been in a relationship where the following occur: No concerns reported THRIVE Score: 0 AUDIT C Alcohol Use Questionnaire (AUDIT-C) 1. How often do you have a drink containing alcohol?: Never 3. How often do you have six or more drinks on one occasion?: Never Total Score: 0 Score Reviewed/Action Taken: Yes ANIA-7 AMB Questionnaire ANIA-7 Date ANIA - 7 assessed: 01/04/25 Becoming easily annoyed or irritable: 0 = Not at all Source: Developed by Drs. Richard Desai, Adriana Shaw, Loco Stevens and colleagues, with an educational lynnette from [employer]. Review of Systems Const Denies chills, Denies fatigue, Denies fever(s) and Denies headache(s) ENT Denies dysphagia, Denies dizziness, Denies otalgia, Denies headache(s), Denies neck pain, Denies odynophagia and Denies sore throat Card Denies chest pain, Denies palpitations and Denies dyspnea Resp Denies chest congestion, Denies cough and Denies dyspnea GI Denies abdominal pain, Denies constipation, Denies dysphagia, Denies heartburn, Denies diarrhea, Denies nausea, Denies odynophagia and Denies vomiting Denies difficulty voiding, Denies nocturia, Denies dysuria and Denies urinary urgency Musc Reports back pain (increased over the lower back) and Denies neck pain Skin/Breast Denies rash Neuro Denies dizziness and Denies headache(s) Endo Denies fatigue and Denies palpitations Aller/Immun Reports seasonal rhinorrhea Physical exam (Primary Care) Vital Signs: Last Vital Signs Temp 97.3 F 04/28/25 10:54 Pulse 78 04/28/25 10:54 BP 124/80 04/28/25 10:54 Pulse Ox 98 04/28/25 10:54 Oxygen Delivery Method Room Air 04/28/25 10:54 BMI result Body Mass Index 33.1 Tobacco/Smoking Status: Tobacco use Status Tobacco use date assessed 04/28/25 04/28/25 11:01 Patient Tobacco Use Status Never used Tobacco 04/28/25 11:01 e-Cigarette/Vaping Use Never Used 04/28/25 11:01 PHQ-9: PHQ-9 Score PHQ-9: Total score 4 04/28/25 11:34 Depression Screening Interpretation: Positive Depression Screening Follow-up: Follow-up Visit Requested Thrive Assessment: Date of Thrive Assessment Date Thrive assessed 04/28/25 04/28/25 11:34 Currently or been in a relationship where the following occur: No concerns reported Const General: no acute distress and alert HENMT Ears: TM's normal bilaterally and EAC's normal Throat: Yes posterior oropharynx normal and Yes tonsils normal (no TP congestion noted) Neck Neck: Yes supple and No lymphadenopathy Thyroid: Thyroid normal Resp Auscultation: clear to auscultation bilaterally, no rales and no wheezes Cardio Rate: regular rate Rhythm: regular rhythm Heart sounds: no murmurs GI Palpation (GI): Soft to palpation and nontender Auscultation: normal bowel sounds General: Yes no CVA tenderness Back/Spine/Pelvis Back: no CVA tenderness Thoracic/Lumbar Spine: lumbar spinal tenderness Sacroiliac joints: bilaterally tender to palpation Skin Rashes: no rashes Extrem General: Yes no clubbing, cyanosis or edema Results Reviewed Results Reviewed: Laboratory Tests 04/27/25 04/27/25 06:57 07:10 WBC 5.8 Hgb 12.5 Hct 36.2 L Plt Count 194 Sodium 140 Potassium 4.0 Estimated GFR > 60 Fasting Glucose 129 H Hemoglobin A1c % 6.1 H Calcium 9.0 AST 51 H ALT 75 H Triglycerides 142 Cholesterol 171 LDL Cholesterol, Calc 101 H HDL Cholesterol 42 Vitamin B12 359 25-OH Vitamin D Total 40.3 TSH 0.61 Ur Specific [place] 1.010 Urine Protein Negative Urine Glucose (UA) Negative Urine Blood Negative Urine Nitrite Negative Ur Leukocyte Esterase Negative Coding Level of Care Code Est Pt Level 4 (35488) Diagnoses Type 2 diabetes mellitus without complication, without long-term current use of insulin E11.9 Diabetes mellitus complication status: without complication Diabetes mellitus buttermaker insulin use: without buttermaker use Diabetes mellitus type: type 2 Pure hypercholesterolemia E78.00 Elevated LFTs R79.89 Mild intermittent asthma without complication J45.20 Asthma complication type: uncomplicated Asthma persistence: intermittent Asthma severity: mild Seasonal allergic rhinitis due to pollen J30.1 Allergic rhinitis seasonality: seasonal Allergic rhinitis trigger: pollen Acute right-sided low back pain without sciatica M54.50 Back pain laterality: right Chronicity: acute Sciatica presence: without sciatica Obesity (BMI 30-39.9) E66.9 Additional Codes PHQ-9 - 71102 - PHQ-9 Billing: Yes ([id number]) Assessment & Plan Assessment & Plan (1) Diabetes mellitus: Comment: taking metformin Code(s): E11.9 - Type 2 diabetes mellitus without complications Category: Medical Qualifiers: Diabetes mellitus complication status: without complication Diabetes mellitus buttermaker insulin use: without buttermaker use Diabetes mellitus type: type 2 Qualified Code(s): E11.9 - Type 2 diabetes mellitus without complications Plan: Patient's HgbA1c was at 6.1% on her labs done yesterday (was previously at 6.9% a few months ago) - goal is at least <7.0% Reinforced diabetic diet Continue Metformin ER 500 mg 4 tablets QD, Januvia 50 mg QD and Ozempic 0.25 mg SQ once a week Will recheck her FBS and HgbA1c in 4 months for follow up (2) Pure hypercholesterolemia: Code(s): E78.00 - Pure hypercholesterolemia, unspecified Category: Medical Plan: Results of her labs done yesterday reviewed and discussed with patient - her cholesterol levels have improved significantly from previous Reinforced low cholesterol diet Continue Rosuvastatin 5 mg every other day for now, as her LFTs are still elevated and taking her statin daily will likely make them worse She was not able to tolerate Atorvastatin in the past due to increased myalgia Will recheck her labs and fasting lipids in 4 months for follow up (3) Elevated LFTs: Code(s): R79.89 - Other specified abnormal findings of blood chemistry Category: Medical Plan: Patient is advised that her LFTs are still elevated on her recent labs - this is most likely again due to a combination of her weight, cholesterol and Rx Patient states that she does NOT drink alcohol and is presently asymptomatic with no complaints of nausea/vomiting or abdominal pain Abdominal US done back in June 2021 revealed findings consistent with hepatosteatosis with no other abnormalities noted Hepatitis profile done last year all came back negative Will continue to monitor her LFTs regularly for now We also checked her liver fibrosis panel but the results are still pending at this time Have advised patient that if her liver fibrosis is significant or advanced, will need to address this more urgently (4) Asthma: Code(s): J45.909 - Unspecified asthma, uncomplicated Category: Medical Qualifiers: Asthma complication type: uncomplicated Asthma persistence: intermittent Asthma severity: mild Qualified Code(s): J45.20 - Mild intermittent asthma, uncomplicated Plan: Controlled - patient states that her asthma tends to flare up often mostly in the winter time and she has been doing well lately Continue Albuterol HFA 2 puffs 4 times a day as needed (5) Allergic rhinitis: Code(s): J30.9 - Allergic rhinitis, unspecified Category: Medical Qualifiers: Allergic rhinitis seasonality: seasonal Allergic rhinitis trigger: pollen Qualified Code(s): J30.1 - Allergic rhinitis due to pollen Plan: Patient takes OTC Tamara 180 mg QD PRN with some relief of her symptoms (6) Low back pain: Code(s): M54.50 - Low back pain, unspecified Category: Medical Qualifiers: Back pain laterality: right Chronicity: acute Sciatica presence: without sciatica Qualified Code(s): M54.50 - Low back pain, unspecified Plan: Will send her for x-rays of the lumbar spine and SI joints bilaterally for further evaluation and management Will start her for now on Lidocaine 5% patches to apply to her lower back QD PRN (7) Obesity (BMI 30-39.9): Code(s): E66.9 - Obesity, unspecified Category: Medical Plan: Reinforced diet/exercise as tolerated/lose weight Follow up with Weight Management as scheduled Plan Follow up in 4 months Orders: Orders XR sacroiliac joint min 3V 04/28/25 M54.50 - Low back pain, unspecified Hemoglobin A1c 4 Months E11.9 - Type 2 diabetes mellitus without complications Comprehensive [place]. Panel Fast 4 Months E78.00 - Pure hypercholesterolemia, unspecified TSH reflex Free T4 4 Months E78.00 - Pure hypercholesterolemia, unspecified UA CC w/rflx Micro + Cult 4 Months R30.0 - Dysuria Vitamin D 25-OH Total 4 Months E55.9 - Vitamin D deficiency, unspecified XR lumbar spine 2-3V 04/28/25 M54.50 - Low back pain, unspecified Complete Blood Count Auto Diff 4 Months D64.9 - Anemia, unspecified Lipid Panel 4 Months E78.00 - Pure hypercholesterolemia, unspecified Microalbumin, Random (w Creat) 4 Months E11.9 - Type 2 diabetes mellitus without complications Medications: Refilled lidocaine 5% leave on most painful area for up to 12 hrs 1 patch topical DAILY 30 ea 3RF
[2025-04-28 10:54] VITALS: BP 124/80; PULSE 78; TEMP 36.3; O2SAT 98; BMI 33.1
== END 2025-04-28 11:52 | disposition home or self-care (01) ==
LOC: HO.HMCH 10:50
PROVIDERS: PCP Internal Medicine; Visit Provider Internal Medicine
DX: E11.9 Type 2 diabetes mellitus without complications (principal); E78.00 Pure hypercholesterolemia, unspecified; E66.9 Obesity, unspecified; Z68.33 Body mass index [BMI] 33.0-33.9, adult; R79.89 Other specified abnormal findings of blood chemistry; J45.20 Mild intermittent asthma, uncomplicated; J30.1 Allergic rhinitis due to pollen; M54.50 Low back pain, unspecified

== ENCOUNTER → 2025-04-28 16:30 | Outpatient (BNV) | payer OTHER, SELFPAY | PROVIDERS: PCP Internal Medicine; Visit Provider Radiology Diagnostic Radiology | DX: M47.898 Other spondylosis, sacral and sacrococcygeal region (principal); M51.87 Other intervertebral disc disorders, lumbosacral region | CPT/HCPCS: 72100; 72202 ==

== ENCOUNTER 2025-06-08 06:18 | Day surgery (SDC) | payer OTHER, SELFPAY ==
[2024-04-26 10:37] VITALS: BMI 35.0
[2024-11-01 12:21] VITALS: BMI 34.4
--- NOTE | 2025-06-05 14:50 | HO.ANESPROP2 ---
Documented by User: Shayna Arias NP 06/05/25 14:53 HPI - Anesthesia Eval Consult details Narrative: 59 yr old female for colonoscopy Anesthesia Pre-Procedure Meds Is the patient on any of the following meds?: GLP1/DPP4 PMFSH Active Problems Active Problems: All Active Problems Low back pain (Acute) Sinus infection (Acute) Acute bacterial sinusitis (Acute) Chronic cough (Acute) Acute sinusitis (Acute) Asthma exacerbation (Acute) Personal history of colonic polyps (Acute) Status post fall (Acute) Rib pain on left side (Acute) Colon cancer screening (Acute) Petechial rash (Acute) Elevated LFTs (Acute) Pure hypercholesterolemia (Acute) Obesity (BMI 30-39.9) (Acute) Allergic rhinitis (Acute) Asthma (Acute) Diabetes mellitus (Acute) Past Medical History Medical History Elevated LFTs Pure hypercholesterolemia Obesity (BMI 30-39.9) Allergic rhinitis Asthma Diabetes mellitus Family History Family History Father Hypertension Hyperlipidemia Paternal Grandmother Diabetes mellitus Maternal Grandmother Diabetes mellitus Surgical History Surgical History Hx of colonoscopy History of hysterectomy History of tubal ligation H/O section Social History Social History Housing: House Alcohol intake: never Patient Tobacco Use Status: Never used Tobacco e-Cigarette/Vaping Use: Never Used Second Hand Smoke Exposure: No Use of substances other than those prescribed or required for medical reasons: No Are you DNR?: No Advance Directives: No Advance Directives Information Provided: Yes Patient : No : No service: No Current occupational status: employed Cognitive needs: No Hearing needs: No Vision needs: No Meds Allergies Allergy/AdvReac Type Severity Reaction Status Date / Time hazelnut Allergy Severe Anaphylaxis Verified 06/06/25 12:22 peanut Allergy Severe Angioedema Verified 06/06/25 12:22 atorvastatin Allergy Intermediate Muscle Pain Verified 04/28/25 11:24 Home Medications ?Medication ?Instructions ?Recorded ?Confirmed ?Last Taken ?Type blood sugar diagnostic #10 ea 12/31/20 04/28/25 Unknown History ibuprofen 600 mg tablet 600 mg PO Q6H PRN pain 12/31/20 06/06/25 Unknown History Exam Height,Weight and Vital Signs: Height 5 ft 1 in Weight 82.554 kg Pertinent Lab Results Pertinent Lab Results: Laboratory Tests 04/27/25 07:10 WBC 5.8 RBC 4.61 Hgb 12.5 Hct 36.2 L Plt Count 194 Sodium 140 Potassium 4.0 Chloride 110 H BUN 11 Creatinine 0.56 Documented by User: Sue Turner MD 06/08/25 07:11 PMFSH Past Medical History Medical History Elevated LFTs Pure hypercholesterolemia Obesity (BMI 30-39.9) Allergic rhinitis Asthma Diabetes mellitus Family History Family History Father Hypertension Hyperlipidemia Paternal Grandmother Diabetes mellitus Maternal Grandmother Diabetes mellitus Family history of problems with anesthesia: No Surgical History Surgical History Hx of colonoscopy History of hysterectomy History of tubal ligation H/O section History of Problems with Anesthesia: No Social History Social History Housing: House Alcohol intake: never Patient Tobacco Use Status: Never used Tobacco e-Cigarette/Vaping Use: Never Used Second Hand Smoke Exposure: No Use of substances other than those prescribed or required for medical reasons: No Are you DNR?: No Advance Directives: No Advance Directives Information Provided: Yes Patient : No : No service: No Current occupational status: employed Cognitive needs: No Hearing needs: No Vision needs: No Meds Allergies Allergy/AdvReac Type Severity Reaction Status Date / Time hazelnut Allergy Severe Anaphylaxis Verified 06/06/25 12:22 peanut Allergy Severe Angioedema Verified 06/06/25 12:22 atorvastatin Allergy Intermediate Muscle Pain Verified 04/28/25 11:24 Home Medications ?Medication ?Instructions ?Recorded ?Confirmed ?Last Taken ?Type blood sugar diagnostic #10 ea 12/31/20 04/28/25 Unknown History ibuprofen 600 mg tablet 600 mg PO Q6H PRN pain 12/31/20 06/06/25 Unknown History Exam Airway Mallampati Class: II (2 top front teeth) TM Dist: >3cm Neck ROM: Full Heart: rrr Lungs: cta Assessment and Plan Assessment Anesthesia Assessment: Anesthesia Plan Discussed and Chart Reviewed Final Anesthetic Review Family History of Problems with Anesthesia: No History of Problems with Anesthesia: No NPO: Yes ASA Class: III Final Preanesthetic Review: No Changes in Pt Med Stat, Meds/Allgs Chart Reviewed and Consent Obtained/Reviewed Patient Risk: Low Procedure Risk: Low Anesthetic Plan Anesthetic Plan: MAC: Disposition: Standard PACU
[2025-06-06 12:27] VITALS: BMI 33.1
[2025-06-08 06:41] VITALS: BMI 32.5
[2025-06-08 06:47] VITALS: BP 167/79; PULSE 83; RESP 16; TEMP 35.9; O2SAT 99
[2025-06-08] MEDS: Lactated Ringers 1,000 ML 100 ML IVCONT (07:02)
[2025-06-08 07:08] LABS: Glucose, Whole Blood 133 mg/dL (60-115)
--- NOTE | 2025-06-08 07:44 | MHC.SHP ---
Pre-Procedural Eval Section A - 24 Hr Update-Section A only Date of Service: 06/08/25 Section B - Complete if H&P > 30 days Chief Complaint: Personal history of colonic polyps Details of Present Illness: Allergic rhinitis Asthma Diabetes mellitus Elevated LFTs Obesity (BMI 30-39.9) Petechial rash Pure hypercholesterolemia Surgical History (Updated 01/21/23 @ 12:36 by NANCY Dumont) H/O section History of hysterectomy History of tubal ligation Hx of colonoscopy Allergies: Allergies Allergy/AdvReac Type Severity Reaction Status Date / Time hazelnut Allergy Severe Anaphylaxis Verified 06/06/25 12:22 peanut Allergy Severe Angioedema Verified 06/06/25 12:22 atorvastatin Allergy Intermediate Muscle Pain Verified 04/28/25 11:24 Review of Systems Review of Systems Comment: Ten point ROS negative Exam Exam Comment: Gen appear: No acute distress HEENT: no icterus Chest: No overt resp distress Abd: soft, nontender, nondistended Psych: Stable affect, answering questions appropriately Neuro: A/Ox3 noted to move all extremities spontaneously Ext: no peripheral edema Plan Diagnosis/Plan: Unchanged I have reviewed the history and physical and performed a pertinent physical examination on my patient. No changes have occurred unless specified. Time Spent With Patient Time: Total time managing care of this patient today ____ minutes.
--- NOTE | 2025-06-08 08:11 | P.OPN-COLO_ITS ---
Colonoscopy Operative Note Operative Note Date of Service: 06/08/25 Narrative: Procedure: Colonoscopy Indication: Personal history of polyps Endoscopist: Irena Amaro MD Anesthesia Provider: Anita Chaparro CRNA Anesthesia type: MAC Instrument: Olympus [id number]-H190L Consent: Indication, risks vs benefits, and alternatives were discussed with the patient who gave written informed consent to proceed. EKG, pulse, pulse oximetry and blood pressure were monitored throughout the procedure. Please see anesthesia flowsheet. Procedure: The patient was brought to the procedure room and placed in the left lateral decubitus position. IV medications were administered by the anesthesia provider in attendance. A digital rectal exam was performed which was abnormal due to finding of hemorrhoids. A distal attachment cap was affixed to the tip of the colonoscope which was then inserted through the anus and advanced through the colon to the cecum at 75 cm,and terminal ileum. Appendiceal orifice and ileocecal valve were identified. Mucosa was carefully examined under high definition white light as the instrument was slowly withdrawn in a retrograde panoramic fashion. Retroflexion was performed in rectum. The procedure was not difficult. There were no immediate obvious complications. The quality of the prep was BBPS: 3+3+3 = adequate Withdrawal time 12 minutes. Limitations: No limitations. Findings: Mucosa: Normal to cecum and terminal ileum. Protruding lesions: * 1 sessile polyp of size 4 mm in ascending colon. Cold snare polypectomy was performed. The polyp was completely removed and retrieved. * 1 sessile polyp of size 2 mm in sigmoid colon. Cold snare polypectomy was performed. The polyp was completely removed but not retrieved. * Large internal hemorrhoids without stigmata of recent bleeding. Excavated lesions: * Mild diverticulosis of left sided colon. Impression: 1. Normal colon mucosa 2. Total of 2 polyps removed 3. Diverticulosis 4. External and internal hemorrhoids Recommendations: - Follow path results. - Repeat colonoscopy in 7 years
[2025-06-08 08:16] VITALS: BP 105/60; PULSE 83; RESP 15; TEMP 36.2; O2SAT 97
[2025-06-08 08:31] VITALS: BP 131/68; PULSE 82; RESP 17; TEMP 36.1; O2SAT 97
== END 2025-06-08 09:00 | disposition home or self-care (01) ==
PROVIDERS: PCP Internal Medicine; Visit Provider Internal Medicine
PROC: 0DJD8ZZ Inspection of Lower Intestinal Tract, Via Natural or Artificial Opening Endoscopic (ICD-10-PCS; CPT 45378; principal; 2025-06-08 07:30)
DX: Z12.11 Encounter for screening for malignant neoplasm of colon (principal); Z86.0101 Personal history of adenomatous and serrated colon polyps; E11.9 Type 2 diabetes mellitus without complications; K64.8 Other hemorrhoids; K64.4 Residual hemorrhoidal skin tags; K57.30 Diverticulosis of large intestine without perforation or abscess without bleeding; K63.5 Polyp of colon
CPT/HCPCS: 45385; 82947; 88305; J2003; J2704

== ENCOUNTER → 2025-06-08 06:18 | Outpatient (BNV) | payer OTHER, SELFPAY | PROVIDERS: PCP Internal Medicine; Visit Provider Internal Medicine | DX: Z12.11 Encounter for screening for malignant neoplasm of colon (principal); K63.5 Polyp of colon; K57.90 Diverticulosis of intestine, part unspecified, without perforation or abscess without bleeding; K64.8 Other hemorrhoids | CPT/HCPCS: 45385 ==